=== PATIENT | male | born 1945 | race Caucasian/White ===

== ENCOUNTER 2016-10-04 12:26 | Inpatient (IN) | payer OTHER ==
[2016-10-04] MEDS ORDERED: ALPRAZolam 0.5 MG TAB PO PRN (16:18)
[2016-10-04] MEDS ORDERED: BISACODYL 10 MG SUPP PR PRN (16:23)
--- NOTE | 2016-10-04 16:58 | GHP ---
[f rep st] HISTORY AND PHYSICAL POST ADMISSION PHYSICIAN EVALUATION AND REHABILITATION TREATMENT PLAN DATE OF ADMISSION: 10/04/2016 DATE OF EVALUATION: 10/04/2016 TIME OF EVALUATION: 1515 REFERRING FACILITY: [facility] REFERRING PHYSICIAN: Maxx Jean MD CONSULTING PHYSICIANS: He was seen in consultation by Dr. Veliz, psychiatrist; Dr. Knight, orthopedic surgeon; Oncology Dr. Diego. REHABILITATION DIAGNOSIS: Debility status post left hip fracture and open reduction, internal failure. IMPAIRMENT GROUP: 8.11. RADIOLOGIC DIAGNOSIS: Unilateral hip fracture. DATE OF ONSET: 09/27/2016. DATE OF SURGERY: 09/27/2016. HISTORY OF PRESENT ILLNESS: Mr. Campos tripped over a trash can in the family room in his house on 09/26/2016. His was able to help him onto a couch. He slept through the night, but in the morning he yelled to his that he was unable to walk. She called 9-1-1 and he was brought to [facility]. There, radiology showed a left hip fracture. He underwent ORIF with Dr. Knight on 09/27/2016. His hospital course was complicated by acute encephalopathy, which has resolved with time and with medication adjustment. He was seen by Psychiatry, Dr. Veliz, for adjustment of his medication regimen. He also had hyponatremia with hypovolemia, which resolved with fluid replacement. Additionally, he had hypokalemia which was replaced. He had anemia related to his chronic lymphocytic leukemia and he had 1 unit of blood transfused. There was hypoxemia due to atelectasis, which improved with pulmonary toilet. He had consultation with Oncology regarding his history of CLL. His white count was very high, but was stable and no further treatment was indicated at this time. He was noted to have gait instability, which requires physical therapy to improve his safety with ambulation. He was noted to have hypertension and had the addition of amlodipine to his medications. He was stabilized for discharge to inpatient rehabilitation. OTHER LABORATORIES AND STUDIES DURING THIS HOSPITALIZATION: On the day before discharge, he had a slightly low potassium at 3.4. He appeared to be somewhat dehydrated with a BUN of 26 and a creatinine of 1.1. Otherwise, his renal function and electrolytes were within normal limits. Hematology on 10/02/2016 revealed a stable white blood cell count of 125 and on 09/30/2016 his absolute lymphocyte count was 120. He had anemia on 10/02/2016 with a hemoglobin of 7.3 and a hematocrit of 25.3. This improved after transfusion to a hemoglobin of 7.7 and hematocrit of 26.3. A head CT done to evaluate his altered mental status revealed moderate atrophy, cerebrovascular atherosclerosis, and moderate microvascular ischemic gliosis. There were no other abnormalities noted. Chest x-ray showed cardiomegaly with peribronchial cuffing with possibly left infrahilar airspace disease. EKG showed sinus rhythm and was a normal EKG. PRECAUTIONS: He is a fall risk. He is an aspiration risk. ACTIVE COMORBIDITIES: He has the tier 2 morbidity of dysphagia. Otherwise, there are no active tier 1, tier 2, or tier 3 comorbidities. PAST MEDICAL HISTORY: 1. Chronic lymphocytic leukemia with a baseline white blood cell count of about 200,000. 2. Non-Hodgkin's lymphoma, treated in 2008. 3. Hypertension. 4. Chronic hepatitis B. 5. Bipolar disease. 6. Parkinson disease. 7. Obstructive sleep apnea, intolerant of CPAP. 8. Benign prostatic hypertrophy. 9. Cognitive impairment with memory deficits. 10. History of multiple villous adenomas. 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 12. Mild interstitial fibrosis, secondary to Rituxan versus due to hypogammaglobulinemia. 13. Hypogammaglobulinemia. For which he receives IVIG with the next dose due October 07. 14. History of herpes zoster. PREHOSPITAL MEDICATIONS: 1. Aspirin 81 mg daily. 2. Abilify 40 mg daily. 3. Propranolol 60 mg daily. 4. Lorazepam 2 mg at h.s. 5. Alprazolam 0.5 mg as needed. 6. Valacyclovir 500 mg daily. 7. Quetiapine 200 mg at h.s. 8. Lisinopril 20 mg daily. 9. Vitamin D 5000 units daily. 10. Oxcarbazepine 1200 mg daily. 11. Lamivudine 100 mg daily. 12. Tamsulosin 0.8 mg daily. 13. Oxcarbazepine 300 mg at h.s. ADMISSION MEDICATIONS: 1. Acetaminophen 1000 mg t.i.d. 2. Albuterol/ipratropium nebulizer q.6 hours. 3. Alprazolam 0.5 mg p.o. b.i.d. p.r.n. anxiety. 4. Amlodipine 10 mg p.o. daily. 5. Aripiprazole 40 mg p.o. daily. 6. Aspirin 81 mg p.o. at h.s. 7. Bisacodyl 10 mg daily p.r.n. 8. Cholecalciferol 5000 units q.h.s. 9. Enoxaparin 40 mg subcutaneous daily. 10. IVIG 20 g, scheduled for 10/07/2016. 11. Lamivudine 100 mg p.o. daily. 12. Lisinopril 20 mg p.o. daily. 13. Lorazepam 2 mg p.o. q.h.s. 14. Oxcarbazepine 600 mg p.o. q.h.s. and 1200 mg p.o. daily. 15. Oxycodone 5 mg p.o. q.3 hours p.r.n. 16. Polyethylene glycol 17 g p.o. daily. 17. Propranolol 60 mg p.o. daily. 18. Quetiapine 50 mg p.o. q.h.s. 19. Senna/docusate 1-2 tablets p.o. b.i.d. 20. Tamsulosin 0.8 mg p.o. q.h.s. 21. Valacyclovir 500 mg p.o. daily. ALLERGIES: There are no known drug allergies. FAMILY HISTORY: There is a family history of a CVA in 1 of his parents. PSYCHOSOCIAL HISTORY: He lives at home with his . He is independent with most of his activities of daily living, but has assistance from his with instrumental activities of daily living. He ambulates with a cane. He is a former smoker. He does not use alcohol. REVIEW OF SYSTEMS: Somewhat limited by what appears to be poor recall. He denies any confusion. He denies pain. He denies nausea, vomiting, constipation , or diarrhea, although he says that he is moving his bowels more than he is used to. He denies dyspnea or cough. He denies chest pain or palpitations. He denies skin rash or skin breakdown. He denies dysuria, urinary frequency, or urinary hesitancy and otherwise, a 10-point review of systems is negative. PHYSICAL EXAM: VITAL SIGNS: From this morning at the hospital, his blood pressure was 146/85, his heart rate was 91, his respiratory rate was 17, his oxygen saturation was 94% on room air, his temperature was 36.8 degrees. His weight is 102 kg for a body mass index of 29. GENERAL: This is an obese, moderately unkempt man, appears his chronologic age, cooperative with a mildly combative attitude, and in no acute distress. HEENT: Extraocular movements are intact. Pupils are equally round and reactive to light. Mucous membranes are moist. Dentition is in fair condition. He has a crowded airway with Mallampati class 4. There are no oropharyngeal mucosal lesions noted. NECK: Supple. HEART: There is a regular rate and rhythm with no murmurs, rubs, or gallops. LUNGS: Clear to auscultation bilaterally. ABDOMEN: Soft, nontender , nondistended with normoactive bowel sounds and no hepatosplenomegaly. EXTREMITIES: There is no cyanosis, clubbing, or edema. Radial and dorsalis pedis pulses are 2+ bilaterally. NEUROLOGIC: He is alert and oriented to his general situation, location. Orientation to date was not tested. He recognizes this examiner from his previous stay here, but he does not recall when he has met me before. He confabulates re events around his fall and fracture, saying it happened [place] the ball [place]. Cranial nerves 2-12 are grossly intact. There is no focal weakness, though he requires assistance to arise from seated. Sensation is intact to light touch. There is no bradykinesia. He has a mild tremor of the right lower extremity when he is at rest. There is no rigidity bilaterally in the upper extremities. SKIN: Left hip incision is approximately 3-4 cm. There is some serosanguineous drainage on the bandage. There is no erythema or dehiscence. There is no decubitus ulcer noted. CURRENT LEVEL OF FUNCTION PER THE PREADMISSION SCREEN: Regarding diet, feeding , and swallowing: He was on a dysphagia 2 diet with thin liquids. He was noted to have mild to moderate dysphagia to require supervision. Regarding grooming: He required minimal assist. For bathing, he needed assistance. For dressing, he needed moderate assistance for both upper and lower extremities. For toileting, he was noted to need assistance. For bed mobility, he needed moderate assistance. For transfers, he needed moderate assist with 2 people. Balance standing required a 2-person assist. His endurance was poor. He walked 15 feet with minimal assistance. Cognition was noted to have moderate to severe deficit, and he was considered a fall risk. ASSESSMENT AND PLAN: Mr. Charly Campos is a 71-year-old man, who had a fall at home and suffered a left hip fracture. He has a history of a prior fall with fractures from a ladder on 03/28/2014. At that time, he underwent ORIF of the right femur. He also had sustained pelvic and lumbar vertebral fractures, and he was admitted to a assisted and then back to [facility] with encephalopathy and finally, was discharged to inpatient rehabilitation. He has considerable debility and has suffered an acute encephalopathy which may be clearing, though he seems to be quite confused on the current exam. He has comorbid chronic lymphocytic leukemia, hypogammaglobulinemia, a diagnosis of Parkinson disease though he is not on any medications for it, and bipolar 2 disorder for which he is on medications. Additionally, he has chronic hepatitis B which is being treated, and a history of herpes zoster on suppressive therapy. He is appropriate for inpatient rehabilitation. He will benefit from comprehensive therapies regarding cognition, swallowing, mobility, and activities of daily living. In addition, he needs nursing care regarding his fall risk, skin risk, behavioral issues, and bowel and bladder management, and he will benefit from close medical supervision regarding hypertension, anemia, possible parkinsonism, and pain management. His goal is to return home with his with home healthcare and durable medical equipment as needed. For a safe discharge, he will need to achieve modified independence with mobility ADLs and cognition. There will have to be education for the patient and his regarding medication management, and family training for him to return home. He will receive therapy with physical therapy, occupational therapy, and speech and language pathology for 60 minutes per day for each discipline on 5-7 days a week. His expected duration of stay is 10-14 days. It is expected that upon discharge he will continue to benefit from home health services, including nursing, speech and language pathology, social work, occupational therapy, and physical therapy. By problem list: 1. Hip fracture following a fall at home, status post ORIF with debility. He will have physical and occupational therapy to optimize his mobility and functional status regarding ADLs. 2. Dysphagia noted in the hospital, on a dysphagia 2 diet. He will have therapy with speech and language pathology to optimize his swallowing with the least restrictive diet. 3. Cognitive impairment with prominent memory loss and confabulation. He will have therapy with speech and language pathology to optimize his cognitive function. 4. Anemia, due to chronic lymphocytic leukemia. His blood counts will be followed and potentially, he will receive another transfusion. 5. Hypertension. Blood pressure was still elevated today at the acute care hospital despite addition of amlodipine to his regimen of lisinopril and propranolol. On his previous admission he developed hyponatremia with hydrochlorothiazide, so he may not be a candidate for diuretic therapy. His blood pressure will be followed and medications adjusted as needed. 6. Benign prostatic hypertrophy. He will continue tamsulosin. 7. Bipolar disorder. He will continue on his adjusted medication regimen of quetiapine 200 mg q.h.s., oxcarbazepine 1200 mg daily and 600 mg q.h.s., as well as p.r.n. lorazepam and alprazolam, and aripiprazole 40 mg daily. 8. Likely osteoporosis with history of prior fractures and current fracture. He is on vitamin D replacement and this will be continued, and advise bone density testing after his discharge. 9. Obstructive sleep apnea, intolerant of CPAP. Oxygen at night will be used and he will be monitored for any complications. 10. Chronic lymphocytic leukemia is managed per Oncology. 11. Hypogammaglobulinemia, due for repeat dosing of IVIG on 10/07/2016. /[id number]/MODL MTDD
[2016-10-04] MEDS: IPRATROPIUM/ALBUTEROL 3 ML DEYVIAL IH SCH (18:26)
[2016-10-04] MEDS: CHOLECALCIFEROL VIT D3 1,000 UNITS TAB PO SCH (20:38)
[2016-10-04] MEDS: QUEtiapine FUMARATE 200 MG TAB PO SCH (20:38)
[2016-10-04] MEDS: OXcarbazepine 300 MG TAB PO SCH (20:39)
[2016-10-04] MEDS: TAMSULOSIN HCL 0.4 MG CAP PO SCH (20:39)
[2016-10-04] MEDS: ASPIRIN 81 MG CHEWABLE TAB PO SCH (20:39)
[2016-10-04] MEDS: ACETAMINOPHEN 500 MG TAB PO SCH (20:46)
[2016-10-04] MEDS ORDERED: LORazepam 1 MG TAB PO SCH (21:00)
[2016-10-04] MEDS: NYSTATIN 15 GM CR TUBE TP SCH ×2 (22:24→22:38)
[2016-10-05] MEDS: IPRATROPIUM/ALBUTEROL 3 ML DEYVIAL IH SCH ×5 (00:35→23:29)
[2016-10-05] MEDS: ACETAMINOPHEN 500 MG TAB PO SCH ×3 (05:25→20:26)
[2016-10-05 08:30] LABS: ABSOLUTE NRBC COUNT 0.26 10^3/uL (0-0.01); ADD DIFF? YES; ADD MORPH? YES; ADD SCAN? YES; ATYPICAL LYMPHOCYTE FLAG 20 (0-99); FRAGMENT RBC FLAG 20 (0-99); HEMATOCRIT 27.9 % (40.0-51.0); HEMOGLOBIN 8.4 g/dL (13.7-17.5); LEFT SHIFT FLG 10 (0-99); LIPEMIA HEMOLYSIS FLAG 80 (0-99); MEAN CELL HEMOGLOBIN 31.9 pg (27.9-34.1); MEAN CELL HEMOGLOBIN CONCENTR. 30.1 g/dL (32.4-36.7); MEAN CELL VOLUME 106.1 fL (81.5-99.8); NRBC-AUTO% 0.2 % (0.0-0.2); PLATELET CLUMPS FLAG 0 (0-99); PLATELET COUNT 135 10^3/uL (150-400); RED BLOOD CELL COUNT 2.63 10^6/uL (4.40-6.38)
[2016-10-05] MEDS: PROPRANOLOL SR 60 MG CAP PO SCH (08:35)
[2016-10-05] MEDS: valACYclovir 500 MG TAB PO SCH (08:35)
[2016-10-05] MEDS: POLYETHYLENE GLYCOL 3350 17 GM PKT PO SCH (08:36)
[2016-10-05] MEDS: amLODIPine BESYLATE 5 MG TAB PO SCH (08:36)
[2016-10-05] MEDS: LISINOPRIL 20 MG TAB PO SCH (08:36)
[2016-10-05] MEDS: OXcarbazepine 300 MG TAB PO SCH ×2 (08:36→20:08)
[2016-10-05] MEDS: ENOXAPARIN 40 MG/0.4 ML SYR SC SCH (08:37)
[2016-10-05] MEDS: ARIPiprazole 10 MG TAB PO SCH (08:45)
[2016-10-05] MEDS: NYSTATIN 15 GM CR TUBE TP SCH ×2 (08:55→20:21)
[2016-10-05 09:03] LABS: ALANINE AMINOTRANSFERASE 33 IU/L (21-72); ALBUMIN 3.5 g/dL (3.5-5.0); ALKALINE PHOSPHATASE 76 IU/L (38-126); ANION GAP 8 mEq/L (8-16); ASPARTATE AMINOTRANSFERASE 24 IU/L (17-59); BILIRUBIN,TOTAL 0.6 mg/dL (0.1-1.4); CALCIUM 9.4 mg/dL (8.5-10.4); CARBON DIOXIDE 29 mEq/l (22-31); CHLORIDE 105 mEq/L (97-110); GLOMERULAR FILTRATION RATE > 60; GLUCOSE 84 mg/dL (70-100); POTASSIUM 3.9 mEq/L (3.5-5.2); SODIUM 142 mEq/L (134-144); TOTAL PROTEIN 5.9 g/dL (6.3-8.2)
[2016-10-05 09:08] LABS: RED CELL DISTRIBUTION WIDTH 20.7 % (11.5-15.2)
[2016-10-05 11:17] LABS: ELLIPTOCYTES 1+; MACROCYTES 1+; PLATELET ESTIMATE DECREASED (ADEQ)
[2016-10-05] MEDS: oxyCODONE IR 5 MG TAB PO PRN (12:12)
--- NOTE | 2016-10-05 12:44 | PDOREHIP ---
Admission [facility] - Admission - 3 Day Assessment Period Admission Date/Day 1: 10/04/16 Day 2: 10/05/16 Day 3: 10/06/16 - Active Diagnoses Comorbidities and Co-existing Conditions at Admission: 00557. None of the Above - Skin Conditions Unhealed Pressure Ulcer (1 or more/Stage 1 or >)-Admission: 0. No
--- NOTE | 2016-10-05 12:45 | SOAPPROG ---
SOAP Progress Note Assessment/Plan: Assessment: * Hip fracture following a fall at home, status post ORIF 09/27/16 with debility. PT & OT to optimize his mobility and functional status regarding ADLs. * Dysphagia noted in the hospital, on a dysphagia 2 diet. He will have therapy with speech and language pathology to optimize his swallowing with the least restrictive diet. * Cognitive impairment with prominent memory loss and confabulation. He will have therapy with speech and language pathology to optimize his cognitive function. * Anemia, due to chronic lymphocytic leukemia. Improved with h/h 8.4/27.9 on 10/05/16, compared to 7/7 & 25.3 on 10/03/16. * Hypertension. Was elevatedlast night. Normotensive today. Continue amlodipine 10 mg QD, lisinopril 20 mg QD and propranolol 60 mg QD. H/O hyponatremia with hydrochlorothiazide, so he may not be a candidate for diuretic therapy. * Benign prostatic hypertrophy. Continue tamsulosin. * Bipolar disorder. Meds adjusted in the acute hospital. Continue quetiapine 200 mg q.h.s., oxcarbazepine 1200 mg daily and 600 mg q.h.s.aripiprazole 40 mg daily and lorazepam, but will reduce lorazepam form 2 mg QHS to 1 mg QHS due to somnolence noted this morning. Continue PRN alprazolam. * Likely osteoporosis with history of prior fractures and current fracture. Continue vitamin D replacement. Advise bone density testing after his discharge. * Obstructive sleep apnea, intolerant of CPAP. Oxygen at night will be used and he will be monitored for any complications. * Chronic lymphocytic leukemia is managed per Oncology. * Hypogammaglobulinemia, due for repeat dosing of IVIG on 10/07/2016. * Tongue coating appears c/w poor hygiene rather than thrush. Staff to pay attention to oral hygiene. 10/05/16 13:19 Subjective: Noted to be sleepy this morning by nurse. Nurse reports that patient's was interested in getting an MRI of his brain; mentioned as a possibility in head CT done in the hospital; concerned re L facial droop; night nurse also noted L facial droop in eyelid. Patient is seated at lunch table, eating slowly, no complaints other than abdominal bloating and feels that there is a lot of food on his plate. Denies f /c, n/v/c/d. [employer] O[employer]ATOR concerned re possible thrush. Objective: Vital Signs Temp Pulse Resp BP Pulse Ox 36.6 C 84 17 131/82 H 93 10/05/16 05:31 10/05/16 08:35 10/05/16 05:31 10/05/16 08:36 10/05/16 05:31 Laboratory Results 10/05/16 05:30 10/05/16 05:30 10/04/16 10/05/16 10/06/16 05:59 05:59 05:59 Intake Total 480 Output Total 450 Balance 30 Physical Exam - Physical Exam General Appearance: WD/WN, alert, no apparent distress EENT: other (Pale brown coating on tongue lyle L, sparing central and posterior tongue.) Respiratory: normal breath sounds, No crackles, No rhonchi, No wheezing Cardiac/Chest: regular rate, rhythm, No edema Abdomen: normal bowel sounds, non-tender, soft, No distended Neuro/Psych: alert, normal mood/affect, No abnormal director of procurement II-XII, No motor weakness ICD10 Worksheet Patient Problems: Problems Problem Status Diagnosed CLL (chronic lymphocytic leukemia) Acute Hip fracture, left Acute Hypoxemia Acute
[2016-10-05] MEDS: TAMSULOSIN HCL 0.4 MG CAP PO SCH (20:06)
[2016-10-05] MEDS: QUEtiapine FUMARATE 100 MG TAB PO SCH (20:07)
[2016-10-05] MEDS: CHOLECALCIFEROL VIT D3 1,000 UNITS TAB PO SCH (20:07)
[2016-10-05] MEDS: ASPIRIN 81 MG CHEWABLE TAB PO SCH (20:08)
[2016-10-05] MEDS: LORazepam 1 MG TAB PO SCH (20:08)
[2016-10-05 21:56] LABS: SCAN POSITIVE
[2016-10-06] MEDS: ACETAMINOPHEN 500 MG TAB PO SCH ×3 (04:47→20:52)
[2016-10-06] MEDS: IPRATROPIUM/ALBUTEROL 3 ML DEYVIAL IH SCH ×3 (04:47→18:03)
[2016-10-06] MEDS: ARIPiprazole 10 MG TAB PO SCH (08:09)
[2016-10-06] MEDS: PROPRANOLOL SR 60 MG CAP PO SCH (08:09)
[2016-10-06] MEDS: amLODIPine BESYLATE 5 MG TAB PO SCH (08:09)
[2016-10-06] MEDS: SENNOSIDES 1 TAB PO PRN (08:10)
[2016-10-06] MEDS: POLYETHYLENE GLYCOL 3350 17 GM PKT PO SCH (08:10)
[2016-10-06] MEDS: OXcarbazepine 300 MG TAB PO SCH ×2 (08:10→20:51)
[2016-10-06] MEDS: ENOXAPARIN 40 MG/0.4 ML SYR SC SCH (08:10)
[2016-10-06] MEDS: LISINOPRIL 20 MG TAB PO SCH (08:10)
[2016-10-06] MEDS: valACYclovir 500 MG TAB PO SCH (08:10)
[2016-10-06] MEDS: NYSTATIN 15 GM CR TUBE TP SCH ×2 (08:33→20:52)
--- NOTE | 2016-10-06 14:25 | SOAPPROG ---
SOAP Progress Note Assessment/Plan: Assessment: * Hip fracture following a fall at home, status post ORIF 09/27/16 with debility. PT & OT to optimize his mobility and functional status regarding ADLs. Ambulated skilled nursing across roome 10/06/16 with FWW and assist of 2. * Dysphagia noted in the hospital, on a dysphagia 2 diet. He will have therapy with speech and language pathology to optimize his swallowing with the least restrictive diet. * Cognitive impairment with prominent memory loss and confabulation. He will have therapy with speech and language pathology to optimize his cognitive function. * Anemia, due to chronic lymphocytic leukemia. Improved with h/h 8.4/27.9 on , compared to 7/7 & 25.3 on 10/03/16. * Altered LOC: +/- improved with decrease in lorazepam from 2 mg QHS to 1 mg QHS on 10/04/16. Continue to monitor; may need to decrease oxcarbazepine or quetiapine; may request assistance of psychiatry. * Hypertension. Adequate control. Continue amlodipine 10 mg QD, lisinopril 20 mg QD and propranolol 60 mg QD. H/O hyponatremia with hydrochlorothiazide, so he may not be a candidate for diuretic therapy. * Benign prostatic hypertrophy. Continue tamsulosin. Hope for improved voiding with resolution of constipation and/or reduced need for opiate. * Constipation: continue bowel program. * Bipolar disorder. Meds adjusted in the acute hospital. Continue quetiapine 200 mg q.h.s., oxcarbazepine 1200 mg daily and 600 mg q.h.s.aripiprazole 40 mg daily and lorazepam, but will reduce lorazepam form 2 mg QHS to 1 mg QHS due to somnolence noted morning of 10/05/16. Continue PRN alprazolam. * Likely osteoporosis with history of prior fractures and current fracture. Continue vitamin D replacement. Advise bone density testing after his discharge. * Obstructive sleep apnea, intolerant of CPAP. Oxygen at night will be used and he will be monitored for any complications. * Chronic lymphocytic leukemia is managed per Oncology. * Hypogammaglobulinemia, due for repeat dosing of IVIG on 10/07/2016. * Tongue coating appears c/w poor hygiene rather than thrush. Staff to pay attention to oral hygiene. 10/06/16 14:26 Subjective: No complaints. Slept well. Did not feel less sleepy this morning. Urinary retention noted by nurse. Also with constipation. Given suppository, has small bowel movement and voided 350cc. Objective: Vital Signs Temp Pulse Resp BP Pulse Ox 36.4 C 71 17 135/76 H 94 10/06/16 05:15 10/06/16 08:09 10/06/16 05:15 10/06/16 08:10 10/06/16 05:15 Laboratory Results 10/05/16 05:30 10/05/16 05:30 10/05/16 10/06/16 10/07/16 05:59 05:59 05:59 Intake Total 480 1010 236 Output Total 450 875 Balance 30 135 236 Physical Exam - Physical Exam General Appearance: WD/WN, alert, no apparent distress, obese, other (drowsy) Respiratory: normal breath sounds, No crackles, No rhonchi, No wheezing Cardiac/Chest: regular rate, rhythm, No edema Abdomen: normal bowel sounds, non-tender, soft, No distended Neuro/Psych: alert, normal mood/affect ICD10 Worksheet Patient Problems: Problems Problem Status Diagnosed CLL (chronic lymphocytic leukemia) Acute Hip fracture, left Acute Hypoxemia Acute
[2016-10-06] MEDS: TAMSULOSIN HCL 0.4 MG CAP PO SCH (20:51)
[2016-10-06] MEDS: ASPIRIN 81 MG CHEWABLE TAB PO SCH (20:51)
[2016-10-06] MEDS: LORazepam 1 MG TAB PO SCH (20:51)
[2016-10-06] MEDS: QUEtiapine FUMARATE 100 MG TAB PO SCH (20:51)
[2016-10-06] MEDS: CHOLECALCIFEROL VIT D3 1,000 UNITS TAB PO SCH (20:52)
[2016-10-07] MEDS: IPRATROPIUM/ALBUTEROL 3 ML DEYVIAL IH SCH ×5 (00:01→23:23)
[2016-10-07] MEDS: ACETAMINOPHEN 500 MG TAB PO SCH ×3 (06:13→23:23)
[2016-10-07] MEDS: POLYETHYLENE GLYCOL 3350 17 GM PKT PO SCH (08:45)
[2016-10-07] MEDS: amLODIPine BESYLATE 5 MG TAB PO SCH (08:47)
[2016-10-07] MEDS: ARIPiprazole 10 MG TAB PO SCH (08:49)
[2016-10-07] MEDS: ENOXAPARIN 40 MG/0.4 ML SYR SC SCH (08:51)
[2016-10-07] MEDS: LISINOPRIL 20 MG TAB PO SCH (08:52)
[2016-10-07] MEDS: OXcarbazepine 300 MG TAB PO SCH ×2 (08:53→19:20)
[2016-10-07] MEDS: PROPRANOLOL SR 60 MG CAP PO SCH (08:56)
[2016-10-07] MEDS: valACYclovir 500 MG TAB PO SCH (08:57)
[2016-10-07] MEDS: NYSTATIN 15 GM CR TUBE TP SCH ×2 (09:15→19:20)
--- NOTE | 2016-10-07 16:02 | SOAPPROG ---
SOAP Progress Note Assessment/Plan: Assessment: * Hip fracture following a fall at home, status post ORIF 09/27/16 with debility. Initial FIM 44 on 10/07/16. Ambulated 25', co-treat, wheelchair following. Motor planning deficit; inconsistent mobility. ContinuePT & OT to optimize his mobility and functional status regarding ADLs. Goal to reduce burden of care to 1 person assist. * Dysphagia noted in the hospital, on a dysphagia 2 diet. He will have therapy with speech and language pathology to optimize his swallowing with the least restrictive diet. * Cognitive impairment with prominent memory loss and confabulation. PAINT TINTER reports SLUMS 04/15 in hospital. Continue attempts at cognitive rehabilitation. * Anemia, due to chronic lymphocytic leukemia. Improved with h/h 8.4/27.9 on , compared to 04/22 & 25.3 on 10/03/16. * Altered LOC: +/- improved with decrease in lorazepam from 2 mg QHS to 1 mg QHS on 10/04/16. Continue to monitor. * Hypertension. Adequate control. Continue amlodipine 10 mg QD, lisinopril 20 mg QD and propranolol 60 mg QD. H/O hyponatremia with hydrochlorothiazide, so he may not be a candidate for diuretic therapy. * Benign prostatic hypertrophy. Continue tamsulosin. Improved voiding with resolution of constipation and reduced need for opiate. * Constipation: continue bowel program. * Bipolar disorder. Continue quetiapine 200 mg q.h.s., oxcarbazepine 1200 mg daily and 600 mg q.h.s.aripiprazole 40 mg daily and lorazepam, but will reduce lorazepam form 2 mg QHS to 1 mg QHS due to somnolence noted morning of . Continue PRN alprazolam. * Likely osteoporosis with history of prior fractures and current fracture. Continue vitamin D replacement. Advise bone density testing after his discharge. * Obstructive sleep apnea, intolerant of CPAP. Oxygen at night will be used and he will be monitored for any complications. * Chronic lymphocytic leukemia is managed per Oncology. * Hypogammaglobulinemia, due for repeat dosing of IVIG on 10/07/2016. * Tongue coating appears c/w poor hygiene rather than thrush. Staff to pay attention to oral hygiene. 10/07/16 15:57 Subjective: No complaints. Denies pain, f/c, cough, dyspnea. Does not recall therapy sessions today until prompted, and then shows me medication list to indicate what he did in therapies. Objective: Vital Signs Temp Pulse Resp BP Pulse Ox 36.8 C 81 16 135/86 H 92 10/07/16 06:24 10/07/16 08:56 10/07/16 06:24 10/07/16 08:56 10/07/16 06:24 Laboratory Results 10/05/16 05:30 10/05/16 05:30 10/06/16 10/07/16 10/08/16 05:59 05:59 05:59 Intake Total 1010 476 600 Output Total 875 850 350 Balance 135 -374 250 Physical Exam - Physical Exam General Appearance: WD/WN, alert, no apparent distress Respiratory: normal breath sounds, No crackles, No rhonchi, No wheezing Cardiac/Chest: regular rate, rhythm, No edema Neuro/Psych: alert, normal mood/affect ICD10 Worksheet Patient Problems: Problems Problem Status Diagnosed CLL (chronic lymphocytic leukemia) Acute Hip fracture, left Acute Hypoxemia Acute
[2016-10-07] MEDS: CHOLECALCIFEROL VIT D3 1,000 UNITS TAB PO SCH (19:19)
[2016-10-07] MEDS: TAMSULOSIN HCL 0.4 MG CAP PO SCH (19:19)
[2016-10-07] MEDS: QUEtiapine FUMARATE 100 MG TAB PO SCH ×2 (19:19→19:20)
[2016-10-07] MEDS: ASPIRIN 81 MG CHEWABLE TAB PO SCH (19:19)
[2016-10-07] MEDS: LORazepam 1 MG TAB PO SCH (19:20)
[2016-10-08] MEDS: ACETAMINOPHEN 500 MG TAB PO SCH ×3 (05:50→22:37)
[2016-10-08] MEDS: IPRATROPIUM/ALBUTEROL 3 ML DEYVIAL IH SCH ×4 (05:50→22:32)
[2016-10-08] MEDS: amLODIPine BESYLATE 5 MG TAB PO SCH (09:07)
[2016-10-08] MEDS: POLYETHYLENE GLYCOL 3350 17 GM PKT PO SCH (09:07)
[2016-10-08] MEDS: ARIPiprazole 10 MG TAB PO SCH (09:09)
[2016-10-08] MEDS: ENOXAPARIN 40 MG/0.4 ML SYR SC SCH (09:11)
[2016-10-08] MEDS: LISINOPRIL 20 MG TAB PO SCH (09:14)
[2016-10-08] MEDS: PROPRANOLOL SR 60 MG CAP PO SCH (09:16)
[2016-10-08] MEDS: valACYclovir 500 MG TAB PO SCH (09:17)
[2016-10-08] MEDS: OXcarbazepine 300 MG TAB PO SCH ×2 (09:19→20:52)
[2016-10-08] MEDS: NYSTATIN 15 GM CR TUBE TP SCH ×2 (10:53→20:52)
--- NOTE | 2016-10-08 11:25 | SOAPPROG ---
[id number] debility. Initial FIM 44 on 10/07/16. Ambulated 25', co-treat, wheelchair following. Motor planning deficit; inconsistent mobility. Continue PT & OT to optimize his mobility and functional status regarding ADLs. Goal to reduce burden of care to 1 person assist. * Dysphagia noted in the hospital, on a dysphagia 2 diet. He will have therapy with speech and language pathology to optimize his swallowing with the least restrictive diet. * Cognitive impairment with prominent memory loss and confabulation. CHART READER reports SLUMS 04/15 in hospital. Continue attempts at cognitive rehabilitation. * Anemia, due to chronic lymphocytic leukemia. Improved with h/h 8.4/27.9 on , compared to 7 & 25.3 on 10/03/16. * Altered LOC: +/- improved with decrease in lorazepam from 2 mg QHS to 1 mg QHS on 10/04/16. Continue to monitor. * Hypertension. Adequate control. Continue amlodipine 10 mg QD, lisinopril 20 mg QD and propranolol 60 mg QD. H/O hyponatremia with hydrochlorothiazide, so he may not be a candidate for diuretic therapy. * Benign prostatic hypertrophy. Continue tamsulosin. Improved voiding with resolution of constipation and reduced need for opiate. Still with incontinence at night. Initiate timed voiding during the day beginning . * Constipation: continue bowel program. * Bipolar disorder. Continue quetiapine 200 mg q.h.s., oxcarbazepine 1200 mg daily and 600 mg q.h.s., aripiprazole 40 mg daily and lorazepam, but will reduce lorazepam form 2 mg QHS to 1 mg QHS due to somnolence noted morning of . Continue PRN alprazolam. * Likely osteoporosis with history of prior fractures and current fracture. Continue vitamin D replacement. Advise bone density testing after his discharge. * Obstructive sleep apnea, intolerant of CPAP. Oxygen at night will be used and he will be monitored for any complications. * Chronic lymphocytic leukemia is managed per Oncology. * Hypogammaglobulinemia, due for repeat dosing of IVIG on 10/07/2016. * Tongue coating appears c/w poor hygiene rather than thrush. Staff to pay attention to oral hygiene. 10/08/16 13:21 Subjective: Has had episodes of urinary incontinence; also difficulty voiding, PVR no significantly elevated. He is not clear on how to account for it. He denies issues with privacy for voiding but makes nonspecific comments about "these women" pressuring him "like a noose around my neck." Objective: Vital Signs Temp Pulse Resp BP Pulse Ox 37.0 C 75 18 135/86 H 91 L 10/08/16 06:08 10/08/16 09:16 10/08/16 09:03 10/08/16 09:16 10/08/16 09:03 Laboratory Results 10/05/16 05:30 10/05/16 05:30 10/07/16 10/08/16 10/09/16 05:59 05:59 05:59 Intake Total 476 600 Output Total 850 350 140 Balance -374 250 -140 Physical Exam - Physical Exam General Appearance: WD/WN, alert, no apparent distress Respiratory: normal breath sounds, No crackles, No rhonchi, No wheezing Cardiac/Chest: regular rate, rhythm, No edema Skin: normal color, warm/dry Neuro/Psych: alert, normal mood/affect ICD10 Worksheet Patient Problems: Problems Problem Status Diagnosed CLL (chronic lymphocytic leukemia) Acute Hip fracture, left Acute Hypoxemia Acute
[2016-10-08] MEDS: CHOLECALCIFEROL VIT D3 1,000 UNITS TAB PO SCH (20:49)
[2016-10-08] MEDS: ASPIRIN 81 MG CHEWABLE TAB PO SCH (20:49)
[2016-10-08] MEDS: LORazepam 1 MG TAB PO SCH (20:51)
[2016-10-08] MEDS: TAMSULOSIN HCL 0.4 MG CAP PO SCH (20:53)
[2016-10-08] MEDS: QUEtiapine FUMARATE 100 MG TAB PO SCH (22:32)
[2016-10-09] MEDS: ACETAMINOPHEN 500 MG TAB PO SCH ×3 (06:27→20:20)
[2016-10-09] MEDS: IPRATROPIUM/ALBUTEROL 3 ML DEYVIAL IH SCH ×3 (06:27→18:29)
[2016-10-09] MEDS: ENOXAPARIN 40 MG/0.4 ML SYR SC SCH (08:48)
[2016-10-09] MEDS: PROPRANOLOL SR 60 MG CAP PO SCH (08:49)
[2016-10-09] MEDS: OXcarbazepine 300 MG TAB PO SCH ×2 (08:49→20:21)
[2016-10-09] MEDS: valACYclovir 500 MG TAB PO SCH (08:49)
[2016-10-09] MEDS: POLYETHYLENE GLYCOL 3350 17 GM PKT PO SCH (08:49)
[2016-10-09] MEDS: amLODIPine BESYLATE 5 MG TAB PO SCH (08:50)
[2016-10-09] MEDS: oxyCODONE IR 5 MG TAB PO PRN ×3 (08:50→18:29)
[2016-10-09] MEDS: ARIPiprazole 10 MG TAB PO SCH (08:50)
[2016-10-09] MEDS: LISINOPRIL 20 MG TAB PO SCH (08:50)
[2016-10-09] MEDS: NYSTATIN 15 GM CR TUBE TP SCH ×2 (09:02→20:40)
--- NOTE | 2016-10-09 11:28 | SOAPPROG ---
SOAP Progress Note Assessment/Plan: Assessment: * Hip fracture following a fall at home, status post ORIF 09/27/16 with debility. Initial FIM 44 on 10/07/16. Ambulated 25', co-treat, wheelchair following. Motor planning deficit; inconsistent mobility. Continue PT & OT to optimize his mobility and functional status regarding ADLs. Goal to reduce burden of care to 1 person assist. * Dysphagia noted in the hospital, on a dysphagia 2 diet. He will have therapy with speech and language pathology to optimize his swallowing with the least restrictive diet. * Cognitive impairment with prominent memory loss and confabulation. 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 Continue attempts at cognitive rehabilitation. * Anemia, due to chronic lymphocytic leukemia. Improved with h/h 8.4/27.9 on , compared to 7 & 25.3 on 10/03/16. * Altered LOC: +/- improved with decrease in lorazepam from 2 mg QHS to 1 mg QHS on 10/04/16. Continue to monitor. * Hypertension. Adequate control. Continue amlodipine 10 mg QD, lisinopril 20 mg QD and propranolol 60 mg QD. H/O hyponatremia with hydrochlorothiazide, so he may not be a candidate for diuretic therapy. * Benign prostatic hypertrophy. Continue tamsulosin. Improved voiding with resolution of constipation and reduced need for opiate. Still with incontinence at night. Initiate timed voiding during the day beginning . * Constipation: continue bowel program. * Bipolar disorder. Continue quetiapine 200 mg q.h.s., oxcarbazepine 1200 mg daily and 600 mg q.h.s., aripiprazole 40 mg daily and lorazepam, but will reduce lorazepam form 2 mg QHS to 1 mg QHS due to somnolence noted morning of . Continue PRN alprazolam. * Likely osteoporosis with history of prior fractures and current fracture. Continue vitamin D replacement. Advise bone density testing after his discharge. * Obstructive sleep apnea, intolerant of CPAP. Oxygen at night will be used and he will be monitored for any complications. * Chronic lymphocytic leukemia is managed per Oncology. * Hypogammaglobulinemia, missed repeat dosing of IVIG on 10/07/2016. D/W Heme/ Onc office 10/08/16 re possibility of nurse coming to rehabilitation unit week of 10/11/16 to administer. Will follow-up week of 10/11/16. * Tongue coating appears c/w poor hygiene rather than thrush. Staff to pay attention to oral hygiene. 10/09/16 11:26 Subjective: No complaints. Slept well. Per nursing, incontinent of urine X 1 this morning while bladder scan was performed; also has called for assistance to urinate and been continent on other occasions today. Objective: Vital Signs Temp Pulse Resp BP Pulse Ox 36.4 C 101 H 16 133/83 H 95 10/09/16 06:53 10/09/16 08:49 10/09/16 06:53 10/09/16 08:50 10/09/16 06:53 Laboratory Results 10/05/16 05:30 10/05/16 05:30 10/08/16 10/09/16 10/10/16 05:59 05:59 05:59 Intake Total 600 2050 320 Output Total 350 290 Balance 250 1760 320 Physical Exam - Physical Exam General Appearance: WD/WN, alert, no apparent distress Respiratory: normal breath sounds, No crackles, No rhonchi, No wheezing Cardiac/Chest: regular rate, rhythm, No edema Skin: normal color, warm/dry Neuro/Psych: alert, normal mood/affect, oriented x 3, abnormal gait (Observed transferring with 2 nurses, with much cueing to turn back towards bed and to not sit until positioned over bed, slowmovement, very small steps.) ICD10 Worksheet Patient Problems: Problems Problem Status Diagnosed CLL (chronic lymphocytic leukemia) Acute Hip fracture, left Acute Hypoxemia Acute
[2016-10-09] MEDS: QUEtiapine FUMARATE 100 MG TAB PO SCH (20:21)
[2016-10-09] MEDS: TAMSULOSIN HCL 0.4 MG CAP PO SCH (20:21)
[2016-10-09] MEDS: LORazepam 1 MG TAB PO SCH (20:22)
[2016-10-09] MEDS: CHOLECALCIFEROL VIT D3 1,000 UNITS TAB PO SCH (20:22)
[2016-10-09] MEDS: ASPIRIN 81 MG CHEWABLE TAB PO SCH (20:40)
[2016-10-10] MEDS: oxyCODONE IR 5 MG TAB PO PRN ×2 (01:28→13:31)
[2016-10-10] MEDS: IPRATROPIUM/ALBUTEROL 3 ML DEYVIAL IH SCH ×4 (01:28→17:33)
[2016-10-10] MEDS: ACETAMINOPHEN 500 MG TAB PO SCH ×3 (06:31→20:11)
[2016-10-10] MEDS: amLODIPine BESYLATE 5 MG TAB PO SCH (08:38)
[2016-10-10] MEDS: ENOXAPARIN 40 MG/0.4 ML SYR SC SCH (08:39)
[2016-10-10] MEDS: ARIPiprazole 10 MG TAB PO SCH (08:39)
[2016-10-10] MEDS: LISINOPRIL 20 MG TAB PO SCH (08:40)
[2016-10-10] MEDS: PROPRANOLOL SR 60 MG CAP PO SCH (08:41)
[2016-10-10] MEDS: POLYETHYLENE GLYCOL 3350 17 GM PKT PO SCH (08:41)
[2016-10-10] MEDS: valACYclovir 500 MG TAB PO SCH (08:41)
[2016-10-10] MEDS: OXcarbazepine 300 MG TAB PO SCH ×2 (08:41→20:13)
[2016-10-10] MEDS: NYSTATIN 15 GM CR TUBE TP SCH ×2 (09:02→20:12)
[2016-10-10 12:15] LABS: ABSOLUTE NRBC COUNT 0.26 10^3/uL (0-0.01); ADD DIFF? YES; ADD MORPH? YES; ATYPICAL LYMPHOCYTE FLAG 40 (0-99); FRAGMENT RBC FLAG 20 (0-99); HEMOGLOBIN 8.9 g/dL (13.7-17.5); LEFT SHIFT FLG 30 (0-99); LIPEMIA HEMOLYSIS FLAG 70 (0-99); MEAN CELL HEMOGLOBIN 30.9 pg (27.9-34.1); MEAN CELL VOLUME 107.6 fL (81.5-99.8); MEAN PLATELET VOLUME 11.1 fL (8.7-11.7); NRBC-AUTO% 0.2 % (0.0-0.2); PLATELET CLUMPS FLAG 30 (0-99); PLATELET COUNT 164 10^3/uL (150-400); RED BLOOD CELL COUNT 2.88 10^6/uL (4.40-6.38); RED CELL DISTRIBUTION WIDTH 19.9 % (11.5-15.2)
[2016-10-10 12:17] LABS: MEAN CELL HEMOGLOBIN CONCENTR. 28.7 g/dL (32.4-36.7)
--- NOTE | 2016-10-10 12:23 | DX ---
AP and lateral chest x-ray 1154 hours. History: Hypoxemia. Findings: Comparison to September 29, 2016. There is once again very poor inspiration with compressive changes at the lung bases. Allowing for th is, there is relative prominence of parenchymal markings at the lung bases that could be related to s ome dependent edema. There are no effusions. Heart size remains upper limits of normal. Central vascu lar catheter remains in place. Pulmonary vasculature is prominent centrally. Osseous structures are u nchanged. There is incidental calcified granuloma left upper lung. Impression: 1. Poor inspiration once again noted with compressive changes at the lung bases. There is suspicion o f superimposed increase in dependent edema at the lung bases. Rule out mild fluid overload. These findings were discussed by telephone with Dr. Acevedo.
[2016-10-10 12:24] LABS: ANION GAP 11 mEq/L (8-16); CALCIUM 10.2 mg/dL (8.5-10.4); CARBON DIOXIDE 28 mEq/l (22-31); CHLORIDE 100 mEq/L (97-110); CREATININE 1.3 mg/dL (0.7-1.3); GLOMERULAR FILTRATION RATE 55; GLUCOSE 96 mg/dL (70-100); POTASSIUM 3.8 mEq/L (3.5-5.2); SODIUM 139 mEq/L (134-144)
[2016-10-10 12:52] LABS: ADD SCAN? NO
[2016-10-10] MEDS: SENNOSIDES 1 TAB PO PRN (13:31)
[2016-10-10 13:50] LABS: MICROCYTES 2+
[2016-10-10 13:51] LABS: ELLIPTOCYTES 1+; MACROCYTES 2+; PLATELET ESTIMATE ADEQUATE (ADEQ); POLYCHROMASIA 1+; SCHISTOCYTES 1+
[2016-10-10 13:52] LABS: SMUDGE CELLS 1+
--- NOTE | 2016-10-10 14:09 | SOAPPROG ---
SOAP Progress Note Assessment/Plan: Assessment: Hypoxia, fever and lethargy: CXR +/- pulmonary edema, with cardiomegaly. Chart reviewed: no echocardiogram done in past 3 years. BNP borderline elevated. Creatinine increase to 1.3 from 1.0 but has been as high as 1.5 during recent hospitalization. UA ordered. * Hip fracture following a fall at home, status post ORIF 09/27/16 with debility. Initial FIM 44 on 10/07/16. Ambulated 25', co-treat, wheelchair following. Motor planning deficit; inconsistent mobility. Continue PT & OT to optimize his mobility and functional status regarding ADLs. Goal to reduce burden of care to 1 person assist. * Dysphagia noted in the hospital, on a dysphagia 2 diet. He will have therapy with speech and language pathology to optimize his swallowing with the least restrictive diet. * Cognitive impairment with prominent memory loss and confabulation. HANDBAG PARTS CUTTER reports SLUMS 04/15 in hospital. Continue attempts at cognitive rehabilitation. * Anemia, due to chronic lymphocytic leukemia. Improved with h/h 8.4/27.9 on , compared to 7/7 & 25.3 on 10/03/16; 8.9 on 10/10/16. * Altered LOC: +/- improved with decrease in lorazepam from 2 mg QHS to 1 mg QHS on 10/04/16. Continue to monitor. Will get brain MRI on a routine basis per 's request; suggested in head CT report 10/01/16. * Hypertension. Adequate control. Continue amlodipine 10 mg QD, lisinopril 20 mg QD and propranolol 60 mg QD. H/O hyponatremia with hydrochlorothiazide, so he may not be a candidate for diuretic therapy. * Benign prostatic hypertrophy. Continue tamsulosin. Improved voiding with resolution of constipation and reduced need for opiate. Still with incontinence at night. Initiate timed voiding during the day beginning . * SUKH: related to CHF? Infection? Post-obstructive (but PVRs no longer significantly elevated)? Will monitor, especially if he is to be diuresed. * Constipation: continue bowel program. * Bipolar disorder. Continue quetiapine 200 mg q.h.s., oxcarbazepine 1200 mg daily and 600 mg q.h.s., aripiprazole 40 mg daily and lorazepam, but will reduce lorazepam form 2 mg QHS to 1 mg QHS due to somnolence noted morning of . Continue PRN alprazolam. * Likely osteoporosis with history of prior fractures and current fracture. Continue vitamin D replacement. Advise bone density testing after his discharge. * Obstructive sleep apnea, intolerant of CPAP. Oxygen at night will be used and he will be monitored for any complications. * Chronic lymphocytic leukemia is managed per Oncology. * Hypogammaglobulinemia, missed repeat dosing of IVIG on 10/07/2016. D/W Heme/ Onc office 10/08/16 re possibility of nurse coming to rehabilitation unit week of 10/11/16 to administer. Will follow-up week of 10/11/16. * Tongue coating resolved. 10/10/16 14:04 Subjective: Hypoxic and lethargic this morning. CXR and labs obtained. No complaints but reduced responsiveness. continues to request brain MRI. Objective: Vital Signs Temp Pulse Resp BP Pulse Ox 37.6 C 94 18 158/94 H 88 L 10/10/16 13:59 10/10/16 08:41 10/10/16 08:29 10/10/16 08:41 10/10/16 13:59 Laboratory Results 10/10/16 10:30 10/10/16 10:30 10/09/16 10/10/16 10/11/16 05:59 05:59 05:59 Intake Total 2050 500 540 Output Total 290 30 Balance 1760 470 540 Physical Exam - Physical Exam General Appearance: WD/WN, alert, no apparent distress, obese EENT: No pharyngeal erythema, No tonsillar exudate Respiratory: normal breath sounds, crackles (few at bases), No rhonchi, No wheezing Cardiac/Chest: regular rate, rhythm, No edema Skin: normal color, warm/dry Neuro/Psych: alert, normal mood/affect ICD10 Worksheet Patient Problems: Problems Problem Status Diagnosed CLL (chronic lymphocytic leukemia) Acute Hip fracture, left Acute Hypoxemia Acute
[2016-10-10 15:44] LABS: COLOR YELLOW; LEUKOCYTE ESTERASE,URINE TRACE (NEGATIVE); NITRITE,URINE NEGATIVE (NEGATIVE)
[2016-10-10 15:47] LABS: BACTERIA 4+ /hpf (NONE SEEN); MUCUS TRACE /lpf (NONE-1+); WBC,URINE 25-50 /hpf (0-3)
[2016-10-10] MEDS: CIPROFLOXACIN 250 MG TAB PO SCH (17:33)
[2016-10-10] MEDS: ASPIRIN 81 MG CHEWABLE TAB PO SCH (20:11)
[2016-10-10] MEDS: CHOLECALCIFEROL VIT D3 1,000 UNITS TAB PO SCH (20:12)
[2016-10-10] MEDS: LORazepam 1 MG TAB PO SCH (20:12)
[2016-10-10] MEDS: TAMSULOSIN HCL 0.4 MG CAP PO SCH (20:13)
[2016-10-10] MEDS: QUEtiapine FUMARATE 100 MG TAB PO SCH (20:13)
[2016-10-11] MEDS: IPRATROPIUM/ALBUTEROL 3 ML DEYVIAL IH SCH ×5 (00:14→23:49)
[2016-10-11] MEDS: oxyCODONE IR 5 MG TAB PO PRN (04:34)
[2016-10-11] MEDS: ACETAMINOPHEN 500 MG TAB PO SCH ×3 (05:56→20:27)
[2016-10-11] MEDS: amLODIPine BESYLATE 5 MG TAB PO SCH (08:48)
[2016-10-11] MEDS: LISINOPRIL 20 MG TAB PO SCH (08:49)
[2016-10-11] MEDS: ENOXAPARIN 40 MG/0.4 ML SYR SC SCH (08:49)
[2016-10-11] MEDS: ARIPiprazole 10 MG TAB PO SCH (08:49)
[2016-10-11] MEDS: POLYETHYLENE GLYCOL 3350 17 GM PKT PO SCH (08:50)
[2016-10-11] MEDS: OXcarbazepine 300 MG TAB PO SCH ×2 (08:50→20:28)
[2016-10-11] MEDS: PROPRANOLOL SR 60 MG CAP PO SCH (08:51)
[2016-10-11] MEDS: valACYclovir 500 MG TAB PO SCH (08:52)
[2016-10-11] MEDS: CIPROFLOXACIN 250 MG TAB PO SCH ×2 (10:00→20:28)
--- NOTE | 2016-10-11 11:40 | SOAPPROG ---
SOAP Progress Note Assessment/Plan: Assessment: Hypoxia, fever and lethargy: CXR +/- pulmonary edema, with cardiomegaly. Chart reviewed: no echocardiogram done in past 3 years. BNP borderline elevated. Creatinine increase to 1.3 from 1.0 but has been as high as 1.5 during recent hospitalization. UA ordered. * Hip fracture following a fall at home, status post ORIF 09/27/16 with debility. Initial FIM 44 on 10/07/16. Ambulated 25', co-treat, wheelchair following. Motor planning deficit; inconsistent mobility. Continue PT & OT to optimize his mobility and functional status regarding ADLs. Goal to reduce burden of care to 1 person assist. * Dysphagia noted in the hospital, on a dysphagia 2 diet. He will have therapy with speech and language pathology to optimize his swallowing with the least restrictive diet. * Cognitive impairment with prominent memory loss and confabulation. TABLE KEEPER reports SLUMS 04/15 in hospital. Continue attempts at cognitive rehabilitation. * Anemia, due to chronic lymphocytic leukemia. Improved with h/h 8.4/27.9 on , compared to 7/7 & 25.3 on 10/03/16; 8.9 on 10/10/16. * Altered LOC: +/- improved with decrease in lorazepam from 2 mg QHS to 1 mg QHS on 10/04/16. Continue to monitor. Will get brain MRI on a routine basis per 's request; suggested in head CT report 10/01/16. * UTI: on Cipro; last UTI was Enterobacter sensitive to Cipro. Await C&S. * Hypoxia: CHF possible per CXR and indeterminate BNP level. Exam not c/w CHF. However, will trial a dose of furosemide. D/C amlodipine due to low BP. Recheck BMP in AM. * SUKH: related to CHF? Infection? Post-obstructive (but PVRs no longer significantly elevated)? Will monitor, especially if he is to be diuresed. * Hypertension. Adequate control. Continue amlodipine 10 mg QD, lisinopril 20 mg QD and propranolol 60 mg QD. H/O hyponatremia with hydrochlorothiazide, so he may not be a candidate for diuretic therapy. Chronic stable issues: * Benign prostatic hypertrophy. Continue tamsulosin. Improved voiding with resolution of constipation and reduced need for opiate. Still with incontinence at night. Initiate timed voiding during the day beginning . * Constipation: continue bowel program. * Bipolar disorder. Continue quetiapine 200 mg q.h.s., oxcarbazepine 1200 mg daily and 600 mg q.h.s., aripiprazole 40 mg daily and lorazepam, but will reduce lorazepam form 2 mg QHS to 1 mg QHS due to somnolence noted morning of . Continue PRN alprazolam. * Likely osteoporosis with history of prior fractures and current fracture. Continue vitamin D replacement. Advise bone density testing after his discharge. * Obstructive sleep apnea, intolerant of CPAP. Oxygen at night will be used and he will be monitored for any complications. * Chronic lymphocytic leukemia is managed per Oncology. * Hypogammaglobulinemia, missed repeat dosing of IVIG on 10/07/2016. D/W Heme/ Onc office 10/08/16 re possibility of nurse coming to rehabilitation unit week of 10/11/16 to administer. Will follow-up week of 10/11/16. * Tongue coating resolved. 10/11/16 11:43 Subjective: No complaints. Denies cough, dyspnea, F/C. Objective: Vital Signs Temp Pulse Resp BP Pulse Ox 36.9 C 71 18 106/62 95 10/11/16 04:47 10/11/16 08:51 10/11/16 08:00 10/11/16 08:51 10/11/16 08:00 Laboratory Results 10/10/16 10:30 10/10/16 10:30 10/10/16 10/11/16 10/12/16 05:59 05:59 05:59 Intake Total 500 860 Output Total 30 250 Balance 470 610 Physical Exam - Physical Exam General Appearance: WD/WN, alert, no apparent distress Respiratory: normal breath sounds, No crackles, No rhonchi, No wheezing Cardiac/Chest: regular rate, rhythm, No edema, No JVD Neuro/Psych: alert, normal mood/affect, other (Slow responses, paucity of thought) ICD10 Worksheet Patient Problems: Problems Problem Status Diagnosed CLL (chronic lymphocytic leukemia) Acute Hip fracture, left Acute Hypoxemia Acute
[2016-10-11] MEDS ORDERED: FUROSEMIDE 20 MG TAB PO ONE (12:03)
[2016-10-11] MEDS: NYSTATIN 15 GM CR TUBE TP SCH ×2 (14:04→20:27)
--- NOTE | 2016-10-11 16:56 | MR ---
MRI of the Brain (Without Contrast) October 11, 2016 Clinical Indication: Possible subacute CVA. Technique: T1-weighted images were acquired axially and sagittally from the foramen magnum to the marleen mackenzie. Axial FLAIR, fast T2-weighted, and diffusion-weighted axial images were obtained without contra st. Findings: Underlying cerebral and cerebellar atrophy is associated with moderate ventriculomegaly and white matter microvascular ischemic gliosis. No evidence of acute cortical ischemia on diffusion-weighted imaging. No evidence of intracranial hem orrhage, mass or mass effect, midline shift. Craniocervical junction appears normal. Carotid and vert ebrobasilar flow-voids are present. Paranasal sinuses appear unremarkably aerated. Impression: Underlying atrophy and white matter microvascular ischemic gliosis, without evidence of a cute or subacute ischemia.
[2016-10-11] MEDS: SENNOSIDES 1 TAB PO PRN (18:28)
[2016-10-11] MEDS: LORazepam 1 MG TAB PO SCH (20:27)
[2016-10-11] MEDS: CHOLECALCIFEROL VIT D3 1,000 UNITS TAB PO SCH (20:27)
[2016-10-11] MEDS: TAMSULOSIN HCL 0.4 MG CAP PO SCH (20:28)
[2016-10-11] MEDS: QUEtiapine FUMARATE 100 MG TAB PO SCH (20:28)
[2016-10-11] MEDS: ASPIRIN 81 MG CHEWABLE TAB PO SCH (20:28)
[2016-10-12] MEDS: IPRATROPIUM/ALBUTEROL 3 ML DEYVIAL IH SCH ×3 (05:15→18:11)
[2016-10-12] MEDS: ACETAMINOPHEN 500 MG TAB PO SCH ×3 (05:15→21:59)
[2016-10-12 08:38] LABS: ANION GAP 12 mEq/L (8-16); CALCIUM 9.8 mg/dL (8.5-10.4); CARBON DIOXIDE 25 mEq/l (22-31); CHLORIDE 101 mEq/L (97-110); CREATININE 1.2 mg/dL (0.7-1.3); GLOMERULAR FILTRATION RATE > 60; GLUCOSE 92 mg/dL (70-100); POTASSIUM 4.2 mEq/L (3.5-5.2); SODIUM 138 mEq/L (134-144)
[2016-10-12] MEDS: PROPRANOLOL SR 60 MG CAP PO SCH (08:41)
[2016-10-12] MEDS: ARIPiprazole 10 MG TAB PO SCH (08:42)
[2016-10-12] MEDS: LISINOPRIL 20 MG TAB PO SCH (08:43)
[2016-10-12] MEDS: valACYclovir 500 MG TAB PO SCH (08:44)
[2016-10-12] MEDS: ENOXAPARIN 40 MG/0.4 ML SYR SC SCH (08:47)
[2016-10-12] MEDS: OXcarbazepine 300 MG TAB PO SCH ×3 (08:48→20:01)
[2016-10-12] MEDS: POLYETHYLENE GLYCOL 3350 17 GM PKT PO SCH (08:57)
[2016-10-12] MEDS: FUROSEMIDE 20 MG TAB PO SCH ×2 (10:16→10:17)
[2016-10-12] MEDS: CIPROFLOXACIN 250 MG TAB PO SCH ×2 (10:16→19:36)
[2016-10-12] MEDS: NYSTATIN 15 GM CR TUBE TP SCH ×2 (10:20→19:47)
--- NOTE | 2016-10-12 10:50 | SOAPPROG ---
SOAP Progress Note Assessment/Plan: Assessment: * Hip fracture following a fall at home, status post ORIF 09/27/16 with debility. Initial FIM 44 on 10/07/16. Ambulated 25', co-treat, wheelchair following. Motor planning deficit; inconsistent mobility. Continue PT & OT to optimize his mobility and functional status regarding ADLs. Goal to reduce burden of care to 1 person assist. * Dysphagia noted in the hospital, on a dysphagia 2 diet. He will have therapy with speech and language pathology to optimize his swallowing with the least restrictive diet. * Cognitive impairment with prominent memory loss and confabulation. CATERERS HELPER reports SLUMS 04/15 in hospital. Continue attempts at cognitive rehabilitation. No new CVA on MRI 10/11/16; obtained per 's request. Mental status +/- improved with decrease in lorazepam from 2 mg QHS to 1 mg QHS on 10/04/16. * UTI. Urine culture growing Klebsiella, sensitive to levofloxacin. Confirmed Ciprofloxacin sensitivity with lab. Continue ciprofloxacin 7 days total. May have improved mental status with treatment. * Hypoxia: CHF possible per CXR and indeterminate BNP level. Exam not c/w CHF. However, oxygenation improved today after 2 doses of furosemide. D/C amlodipine due to low BP. * Anemia, due to chronic lymphocytic leukemia. Improved with h/h 8.4/27.9 on , compared to 7/7 & 25.3 on 10/03/16; 8.9 on 10/10/16. * SUKH: related to CHF? Infection? Post-obstructive (but PVRs no longer significantly elevated)? Improved on labs 10/12/16 with creatinine down to 1.2 from 1.3. * Hypertension. Adequate control. Continue amlodipine 10 mg QD, lisinopril 20 mg QD and propranolol 60 mg QD. H/O hyponatremia with hydrochlorothiazide, so he may not be a candidate for diuretic therapy. Chronic stable issues: * Benign prostatic hypertrophy. Continue tamsulosin. Improved voiding with resolution of constipation and reduced need for opiate. Still with incontinence at night. Initiate timed voiding during the day beginning . * Constipation: continue bowel program. * Bipolar disorder. Continue quetiapine 200 mg q.h.s., oxcarbazepine 1200 mg daily and 600 mg q.h.s., aripiprazole 40 mg daily and lorazepam, but will reduce lorazepam form 2 mg QHS to 1 mg QHS due to somnolence noted morning of . Continue PRN alprazolam. * Likely osteoporosis with history of prior fractures and current fracture. Continue vitamin D replacement. Advise bone density testing after his discharge. * Obstructive sleep apnea, intolerant of CPAP. Oxygen at night will be used and he will be monitored for any complications. * Chronic lymphocytic leukemia is managed per Oncology. * Hypogammaglobulinemia, missed repeat dosing of IVIG on 10/07/2016. D/W Heme/ Onc office 10/08/16 re possibility of nurse coming to rehabilitation unit week of 10/11/16 to administer. Will follow-up week of 10/11/16. * Tongue coating resolved. 10/12/16 10:59 Subjective: No complaints. Not sleepy this AM. Per OT, did better at transferring. Says sleep was interrupted by need to urinate. Otherwise no urinary symptoms. Objective: Vital Signs Temp Pulse Resp BP Pulse Ox 36.6 C 68 18 115/67 95 10/12/16 06:00 10/12/16 06:00 10/12/16 06:00 10/12/16 06:00 10/12/16 06:00 Microbiology 10/10/16 15:44 Urine Culture - Final Urine,Clean Catch Klebsiella Pneumoniae Ssp Pneu Laboratory Results 10/10/16 10:30 10/12/16 06:10 10/11/16 10/12/16 10/13/16 05:59 05:59 05:59 Intake Total 860 1020 600 Output Total 250 1650 400 Balance 610 -630 200 Physical Exam - Physical Exam General Appearance: WD/WN, alert, no apparent distress Respiratory: normal breath sounds, No crackles, No rhonchi, No wheezing Cardiac/Chest: regular rate, rhythm, No edema, No JVD Skin: normal color, warm/dry Neuro/Psych: alert, normal mood/affect ICD10 Worksheet Patient Problems: Problems Problem Status Diagnosed CLL (chronic lymphocytic leukemia) Acute Hip fracture, left Acute Hypoxemia Acute
[2016-10-12] MEDS: LORazepam 1 MG TAB PO SCH (19:35)
[2016-10-12] MEDS: QUEtiapine FUMARATE 100 MG TAB PO SCH (19:36)
[2016-10-12] MEDS: CHOLECALCIFEROL VIT D3 1,000 UNITS TAB PO SCH (19:36)
[2016-10-12] MEDS: TAMSULOSIN HCL 0.4 MG CAP PO SCH (19:36)
[2016-10-12] MEDS: ASPIRIN 81 MG CHEWABLE TAB PO SCH (19:37)
[2016-10-13] MEDS: IPRATROPIUM/ALBUTEROL 3 ML DEYVIAL IH SCH ×5 (00:15→23:20)
[2016-10-13] MEDS: ACETAMINOPHEN 500 MG TAB PO SCH ×3 (04:47→23:21)
[2016-10-13] MEDS: ARIPiprazole 10 MG TAB PO SCH (09:34)
[2016-10-13] MEDS: LISINOPRIL 20 MG TAB PO SCH (09:35)
[2016-10-13] MEDS: PROPRANOLOL SR 60 MG CAP PO SCH (09:36)
[2016-10-13] MEDS: valACYclovir 500 MG TAB PO SCH (09:36)
[2016-10-13] MEDS: OXcarbazepine 300 MG TAB PO SCH ×2 (09:36→19:40)
[2016-10-13] MEDS: POLYETHYLENE GLYCOL 3350 17 GM PKT PO SCH (09:41)
[2016-10-13] MEDS: ENOXAPARIN 40 MG/0.4 ML SYR SC SCH (09:41)
[2016-10-13] MEDS: NYSTATIN 15 GM CR TUBE TP SCH ×2 (09:42→19:42)
[2016-10-13] MEDS: CIPROFLOXACIN 250 MG TAB PO SCH ×2 (10:27→19:41)
--- NOTE | 2016-10-13 11:25 | SOAPPROG ---
SOAP Progress Note Assessment/Plan: Assessment: * Hip fracture following a fall at home, status post ORIF 09/27/16 with debility. Initial FIM 44 on 10/07/16; gain to 55 as of 10/13/16. Ambulating to bathroom with nursing; easier to manage than wheelchair transfer in bathroom. Motor planning deficit; inconsistent mobility, inconsistent performance with ADLs. Continue PT & OT to optimize his mobility and functional status regarding ADLs. Goal to reduce burden of care to 1 person assist. * Dysphagia noted in the hospital, on a dysphagia 2 diet, thin liquids. Per SPREAD CUTTER , he's unwilling to trial less soft food texture. * Cognitive impairment with prominent memory loss and confabulation. SPREAD CUTTER reports SLUMS 04/15 in hospital. Continue attempts at cognitive rehabilitation. No new CVA on MRI 10/11/16; obtained per 's request. Mental status +/- improved with decrease in lorazepam from 2 mg QHS to 1 mg QHS on 10/04/16. * UTI. Urine culture growing Klebsiella, sensitive to levofloxacin. Confirmed Ciprofloxacin sensitivity with lab. Continue ciprofloxacin 7 days total. May have improved mental status with treatment. * Hypoxia: CHF possible per CXR and indeterminate BNP level. Exam not c/w CHF. However, oxygenation improved with furosemide 20 mg QD. D/C amlodipine due to low BP. Recheck BMP, BNP in AM 10/14/16 re CHF, renal function and furosemide use. * Anemia, due to chronic lymphocytic leukemia. Improved with h/h 8.4/27.9 on , compared to 7/7 & 25.3 on 10/03/16; 8.9 on 10/10/16. * SUKH: related to CHF? Infection? Post-obstructive (but PVRs no longer significantly elevated)? Improved on labs 10/12/16 with creatinine down to 1.2 from 1.3. * Hypertension. Adequate control. D/C'd amlodipine 10 mg QD. * HTN: D/C'd amlodipine. Continue lisinopril 20 mg QD and propranolol 60 mg QD. Continue to monitor. * Hypogammaglobulinemia, missed repeat dosing of IVIG on 10/07/2016. D/W Heme/ Onc office 10/08/16 re possibility of nurse coming to rehabilitation unit week of 10/11/16 to administer. Will follow-up week of 10/11/16. Chronic stable issues: * Benign prostatic hypertrophy. Continue tamsulosin. Improved voiding with resolution of constipation and reduced need for opiate. Still with incontinence at night. Initiate timed voiding during the day beginning . * Constipation: continue bowel program. * Bipolar disorder. Continue quetiapine 200 mg q.h.s., oxcarbazepine 1200 mg daily and 600 mg q.h.s., aripiprazole 40 mg daily and lorazepam, but will reduce lorazepam form 2 mg QHS to 1 mg QHS due to somnolence noted morning of . Continue PRN alprazolam. * Likely osteoporosis with history of prior fractures and current fracture. Continue vitamin D replacement. Advise bone density testing after his discharge. * Obstructive sleep apnea, intolerant of CPAP. Oxygen at night will be used and he will be monitored for any complications. * Chronic lymphocytic leukemia is managed per Oncology. * Tongue coating resolved. Attended staffing, 15 min. D/W case mgmt, nursing, PT, OT, SPREAD CUTTER. will not be able to care for him at home, due to level of care needed for mobility, ADLs and cognition. Plan for SNF discharge when bed is available. 10/13/16 11:18 Subjective: Has frequent urination and some incontinence. No dysuria. No f/c, no dyspnea/ cough. Was on 3L O2 overnight, then 2L during the day today. Objective: Vital Signs Temp Pulse Resp BP Pulse Ox 36.8 C 66 16 129/66 H 94 10/13/16 08:00 10/13/16 08:00 10/13/16 08:00 10/13/16 08:00 10/13/16 08:00 Microbiology 10/10/16 15:44 Urine Culture - Final Urine,Clean Catch Klebsiella Pneumoniae Ssp Pneu Laboratory Results 10/10/16 10:30 10/12/16 06:10 10/12/16 10/13/16 10/14/16 05:59 05:59 05:59 Intake Total 1020 1400 Output Total 1650 925 Balance -630 475 Physical Exam - Physical Exam General Appearance: WD/WN, alert, no apparent distress Respiratory: normal breath sounds, No crackles, No rhonchi, No wheezing Cardiac/Chest: regular rate, rhythm, No edema Skin: normal color, warm/dry Neuro/Psych: alert, normal mood/affect ICD10 Worksheet Patient Problems: Problems Problem Status Diagnosed CLL (chronic lymphocytic leukemia) Acute Hip fracture, left Acute Hypoxemia Acute
[2016-10-13] MEDS ORDERED: IMMUNE GLOBULIN 20 GM/200 ML VIAL IV ONE (16:23)
[2016-10-13] MEDS ORDERED: ACETAMINOPHEN 500 MG TAB PO ONE (16:24)
[2016-10-13] MEDS: TAMSULOSIN HCL 0.4 MG CAP PO SCH (19:41)
[2016-10-13] MEDS: QUEtiapine FUMARATE 100 MG TAB PO SCH (19:41)
[2016-10-13] MEDS: ASPIRIN 81 MG CHEWABLE TAB PO SCH (19:42)
[2016-10-13] MEDS: CHOLECALCIFEROL VIT D3 1,000 UNITS TAB PO SCH (19:42)
[2016-10-13] MEDS: LORazepam 1 MG TAB PO SCH (19:42)
[2016-10-14] MEDS: ACETAMINOPHEN 500 MG TAB PO SCH ×3 (05:07→20:37)
[2016-10-14] MEDS: IPRATROPIUM/ALBUTEROL 3 ML DEYVIAL IH SCH ×4 (05:07→23:47)
[2016-10-14] MEDS: ARIPiprazole 10 MG TAB PO SCH (08:56)
[2016-10-14] MEDS: ENOXAPARIN 40 MG/0.4 ML SYR SC SCH (08:56)
[2016-10-14] MEDS: LISINOPRIL 20 MG TAB PO SCH (08:57)
[2016-10-14] MEDS: FUROSEMIDE 20 MG TAB PO SCH (08:57)
[2016-10-14] MEDS: NYSTATIN 15 GM CR TUBE TP SCH ×2 (08:58→20:35)
[2016-10-14] MEDS: OXcarbazepine 300 MG TAB PO SCH ×2 (08:58→20:36)
[2016-10-14] MEDS: POLYETHYLENE GLYCOL 3350 17 GM PKT PO SCH (08:58)
[2016-10-14] MEDS: CIPROFLOXACIN 250 MG TAB PO SCH ×2 (08:59→20:37)
[2016-10-14] MEDS: SENNOSIDES 1 TAB PO PRN (08:59)
[2016-10-14] MEDS: PROPRANOLOL SR 60 MG CAP PO SCH (08:59)
[2016-10-14] MEDS: valACYclovir 500 MG TAB PO SCH (09:00)
[2016-10-14] MEDS: oxyCODONE IR 5 MG TAB PO PRN (11:53)
--- NOTE | 2016-10-14 13:32 | SOAPPROG ---
SOAP Progress Note Assessment/Plan: Assessment: * Hip fracture following a fall at home, status post ORIF 09/27/16 with debility. Initial FIM 44 on 10/07/16; gain to 55 as of 10/13/16. Ambulating to bathroom with nursing; easier to manage than wheelchair transfer in bathroom. Motor planning deficit; inconsistent mobility, inconsistent performance with ADLs. Continue PT & OT to optimize his mobility and functional status regarding ADLs. Goal to reduce burden of care to 1 person assist. * Dysphagia noted in the hospital, on a dysphagia 2 diet, thin liquids. Per MAGAZINE JOURNALIST , he's unwilling to trial less soft food texture. * Cognitive impairment with prominent memory loss and confabulation. MAGAZINE JOURNALIST reports SLUMS 04/15 in hospital. Continue attempts at cognitive rehabilitation. No new CVA on MRI 10/11/16; obtained per 's request. Mental status +/- improved with decrease in lorazepam from 2 mg QHS to 1 mg QHS on 10/04/16. * UTI. Urine culture growing Klebsiella, sensitive to levofloxacin. Confirmed Ciprofloxacin sensitivity with lab. Continue ciprofloxacin 7 days total. May have improved mental status with treatment. * Hypoxia: CHF possible per CXR and indeterminate BNP level. Exam not c/w CHF. However, oxygenation improved with furosemide 20 mg QD. Recheck BMP, BNP in AM 10/15/16 re CHF, renal function and furosemide use. * Anemia, due to chronic lymphocytic leukemia. Improved with h/h 8.4/27.9 on , compared to 7/7 & 25.3 on 10/03/16; 8.9 on 10/10/16. Recheck Aimee 10/15. * SUKH: related to CHF? Infection? Post-obstructive (but PVRs no longer significantly elevated)? Improved on labs 10/12/16 with creatinine down to 1.2 from 1.3. * Hypertension. Adequate control. D/C'd amlodipine 10 mg QD. * HTN: D/C'd amlodipine; BP increasing; will resume 5 mg QD starting 10/15/16. Continue lisinopril 20 mg QD and propranolol 60 mg QD. Continue to monitor. * Hypogammaglobulinemia, missed repeat dosing of IVIG on 10/07/2016. D/W Heme/ Onc office 10/08/16 re possibility of nurse coming to rehabilitation unit week of 10/11/16 to administer. Oncology and Rehabilitation nurses working on a plan. Chronic stable issues: * Benign prostatic hypertrophy. Continue tamsulosin. Improved voiding with resolution of constipation and reduced need for opiate. Still with incontinence at night. Initiate timed voiding during the day beginning . * Constipation: continue bowel program. * Bipolar disorder. Continue quetiapine 200 mg q.h.s., oxcarbazepine 1200 mg daily and 600 mg q.h.s., aripiprazole 40 mg daily and lorazepam, but will reduce lorazepam form 2 mg QHS to 1 mg QHS due to somnolence noted morning of . Continue PRN alprazolam. * Likely osteoporosis with history of prior fractures and current fracture. Continue vitamin D replacement. Advise bone density testing after his discharge. * Obstructive sleep apnea, intolerant of CPAP. Oxygen at night will be used and he will be monitored for any complications. * Chronic lymphocytic leukemia is managed per Oncology. * Tongue coating resolved. will not be able to care for him at home, due to level of care needed for mobility, ADLs and cognition. Plan for SNF discharge when bed is available. 10/14/16 13:29 Subjective: No complaints. Enjoying lunch. Denies f/c, cough, dyspnea. Objective: Vital Signs Temp Pulse Resp BP Pulse Ox 36.8 C 79 16 145/77 H 97 10/14/16 05:37 10/14/16 08:59 10/14/16 11:56 10/14/16 08:59 10/14/16 11:56 Laboratory Results 10/10/16 10:30 10/12/16 06:10 10/13/16 10/14/16 10/15/16 05:59 05:59 05:59 Intake Total 1400 680 Output Total 925 400 683 Balance 475 -400 -3 Physical Exam - Physical Exam General Appearance: WD/WN, alert, no apparent distress Respiratory: normal breath sounds, No crackles, No rhonchi, No wheezing Cardiac/Chest: No edema Skin: normal color, warm/dry Neuro/Psych: alert, normal mood/affect ICD10 Worksheet Patient Problems: Problems Problem Status Diagnosed CLL (chronic lymphocytic leukemia) Acute Hip fracture, left Acute Hypoxemia Acute
[2016-10-14] MEDS ORDERED: ACETAMINOPHEN 500 MG TAB PO ONE (14:00)
[2016-10-14] MEDS ORDERED: IMMUNE GLOBULIN 20 GM/200 ML VIAL IV ONE (14:00)
[2016-10-14] MEDS ORDERED: IMMUNE GLOBULIN 100 ML IV ONE (14:00)
[2016-10-14] MEDS: TAMSULOSIN HCL 0.4 MG CAP PO SCH (20:36)
[2016-10-14] MEDS: QUEtiapine FUMARATE 100 MG TAB PO SCH (20:36)
[2016-10-14] MEDS: CHOLECALCIFEROL VIT D3 1,000 UNITS TAB PO SCH (20:36)
[2016-10-14] MEDS: ASPIRIN 81 MG CHEWABLE TAB PO SCH (20:37)
[2016-10-14] MEDS: LORazepam 1 MG TAB PO SCH (20:37)
[2016-10-15] MEDS: IPRATROPIUM/ALBUTEROL 3 ML DEYVIAL IH SCH ×3 (05:09→18:02)
[2016-10-15] MEDS: ACETAMINOPHEN 500 MG TAB PO SCH ×3 (05:09→21:03)
[2016-10-15] MEDS: ARIPiprazole 10 MG TAB PO SCH (08:23)
[2016-10-15] MEDS: ENOXAPARIN 40 MG/0.4 ML SYR SC SCH (08:24)
[2016-10-15] MEDS: FUROSEMIDE 20 MG TAB PO SCH (08:25)
[2016-10-15] MEDS: NYSTATIN 15 GM CR TUBE TP SCH ×2 (08:26→21:03)
[2016-10-15] MEDS: LISINOPRIL 20 MG TAB PO SCH (08:26)
[2016-10-15] MEDS: OXcarbazepine 300 MG TAB PO SCH ×2 (08:27→20:43)
[2016-10-15] MEDS: POLYETHYLENE GLYCOL 3350 17 GM PKT PO SCH (08:28)
[2016-10-15] MEDS: valACYclovir 500 MG TAB PO SCH (08:28)
[2016-10-15] MEDS: PROPRANOLOL SR 60 MG CAP PO SCH (08:28)
[2016-10-15] MEDS: oxyCODONE IR 5 MG TAB PO PRN ×2 (08:30→18:13)
[2016-10-15] MEDS: CIPROFLOXACIN 250 MG TAB PO SCH ×2 (08:30→20:43)
[2016-10-15 08:41] LABS: ABSOLUTE NRBC COUNT 0.17 10^3/uL (0-0.01); ADD DIFF? YES; ADD MORPH? NO; ATYPICAL LYMPHOCYTE FLAG 30 (0-99); FRAGMENT RBC FLAG 20 (0-99); HEMATOCRIT 28.7 % (40.0-51.0); HEMOGLOBIN 8.5 g/dL (13.7-17.5); LEFT SHIFT FLG 20 (0-99); LIPEMIA HEMOLYSIS FLAG 70 (0-99); MEAN CELL HEMOGLOBIN 31.8 pg (27.9-34.1); MEAN CELL HEMOGLOBIN CONCENTR. 29.6 g/dL (32.4-36.7); MEAN CELL VOLUME 107.5 fL (81.5-99.8); MEAN PLATELET VOLUME 10.8 fL (8.7-11.7); NRBC-AUTO% 0.1 % (0.0-0.2); PLATELET CLUMPS FLAG 0 (0-99); PLATELET COUNT 195 10^3/uL (150-400); RED BLOOD CELL COUNT 2.67 10^6/uL (4.40-6.38); RED CELL DISTRIBUTION WIDTH 19.5 % (11.5-15.2)
[2016-10-15 08:44] LABS: ADD SCAN? NO
[2016-10-15 09:00] LABS: ANION GAP 11 mEq/L (8-16); CALCIUM 10.6 mg/dL (8.5-10.4); CARBON DIOXIDE 29 mEq/l (22-31); CHLORIDE 97 mEq/L (97-110); CREATININE 1.2 mg/dL (0.7-1.3); GLOMERULAR FILTRATION RATE > 60; GLUCOSE 92 mg/dL (70-100); POTASSIUM 4.5 mEq/L (3.5-5.2); SODIUM 137 mEq/L (134-144)
[2016-10-15] MEDS ORDERED: ACETAMINOPHEN 500 MG TAB PO ONE (10:30)
[2016-10-15] MEDS ORDERED: IMMUNE GLOBULIN 100 ML IV ONE (10:30)
[2016-10-15] MEDS ORDERED: IMMUNE GLOBULIN 20 GM/200 ML VIAL IV ONE (10:30)
[2016-10-15 11:18] LABS: MACROCYTES 1+; PLATELET ESTIMATE ADEQUATE (ADEQ); SMUDGE CELLS 1+
[2016-10-15 11:36] LABS: POLYCHROMASIA 1+
[2016-10-15 11:39] LABS: HOWELL-JOLLY BODIES 1+; SCHISTOCYTES 1+
--- NOTE | 2016-10-15 13:32 | SOAPPROG ---
SOAP Progress Note Assessment/Plan: Assessment: * Hip fracture following a fall at home, status post ORIF 09/27/16 with debility. Initial FIM 44 on 10/07/16; gain to 55 as of 10/13/16. Ambulating to bathroom with nursing; easier to manage than wheelchair transfer in bathroom. Motor planning deficit; inconsistent mobility, inconsistent performance with ADLs. Continue PT & OT to optimize his mobility and functional status regarding ADLs. Goal to reduce burden of care to 1 person assist. * Dysphagia noted in the hospital, on a dysphagia 2 diet, thin liquids. Per MANAGER OPERATIONS RESEARCH , he's unwilling to trial less soft food texture. * Cognitive impairment with prominent memory loss and confabulation. MANAGER OPERATIONS RESEARCH reports SLUMS 04/15 in hospital. Continue attempts at cognitive rehabilitation. No new CVA on MRI 10/11/16; obtained per 's request. Mental status +/- improved with decrease in lorazepam from 2 mg QHS to 1 mg QHS on 10/04/16. * UTI. Urine culture growing Klebsiella, sensitive to levofloxacin. Confirmed Ciprofloxacin sensitivity with lab. Continue ciprofloxacin 7 days total, through . May have improved mental status with treatment. * Hypoxia: CHF possible per CXR and indeterminate BNP level. Oxygenation improved with furosemide 20 mg QD. Renal function unchanged and BNP improved on labs 10/15/16. * Anemia, due to chronic lymphocytic leukemia. Improved with h/h 8.4/27.9 on , compared to 7/ & 25.3 on 10/03/16; 8.9 on 10/10/16. Recheck Aimee 10/15. * SUKH: related to CHF? Infection? Post-obstructive (but PVRs no longer significantly elevated)? Improved on labs 10/12/16 with creatinine down to 1.2 from 1.3. * Hypertension. Adequate control. D/C'd amlodipine 10 mg QD. * HTN: D/C'd amlodipine; BP increasing; will resume 5 mg QD starting 10/15/16. Continue lisinopril 20 mg QD and propranolol 60 mg QD. Continue to monitor. * Hypogammaglobulinemia: received IVIG on 10/15/2016. Continue Q 3 week dosing. Chronic stable issues: * Benign prostatic hypertrophy. Continue tamsulosin. Improved voiding with resolution of constipation and reduced need for opiate. Still with incontinence at night. Initiate timed voiding during the day beginning . * Constipation: continue bowel program. * Bipolar disorder. Continue quetiapine 200 mg q.h.s., oxcarbazepine 1200 mg daily and 600 mg q.h.s., aripiprazole 40 mg daily and lorazepam, but will reduce lorazepam form 2 mg QHS to 1 mg QHS due to somnolence noted morning of . Continue PRN alprazolam. * Likely osteoporosis with history of prior fractures and current fracture. Continue vitamin D replacement. Advise bone density testing after his discharge. * Obstructive sleep apnea, intolerant of CPAP. Oxygen at night will be used and he will be monitored for any complications. * Chronic lymphocytic leukemia is managed per Oncology. * Tongue coating resolved. will not be able to care for him at home, due to level of care needed for mobility, ADLs and cognition. Plan for SNF discharge when bed is available. Extensive conversation with Malgorzata today 10/15/16 re goals of care. She reports that he would not want his life prolonged with his current level of debility and cognitive impairment. Per her request, will change code status to DNR. Discussed likely end of life events, including e.g. decision re antibiotics if he were to have pneumonia that could bring the end of his life. Advised hospice consult once he is done with rehabilitation at SNF. 10/15/16 18:43 Subjective: No complaints. Had IVIG infusion today and returned this afternoon. Tolerated well. Objective: Vital Signs Temp Pulse Resp BP Pulse Ox 37.1 C 62 16 140/80 H 92 10/15/16 11:43 10/15/16 11:43 10/15/16 11:43 10/15/16 11:43 10/15/16 11:43 Laboratory Results 10/15/16 06:00 10/15/16 06:00 10/14/16 10/15/16 10/16/16 05:59 05:59 05:59 Intake Total 1510 560 Output Total 400 1408 650 Balance -400 102 -90 Physical Exam - Physical Exam General Appearance: WD/WN, alert, no apparent distress Respiratory: normal breath sounds, No crackles, No rhonchi, No wheezing Cardiac/Chest: regular rate, rhythm, No edema Skin: normal color, warm/dry Neuro/Psych: alert, normal mood/affect ICD10 Worksheet Patient Problems: Problems Problem Status Diagnosed CLL (chronic lymphocytic leukemia) Acute Hip fracture, left Acute Hypoxemia Acute
[2016-10-15] MEDS: ASPIRIN 81 MG CHEWABLE TAB PO SCH (20:43)
[2016-10-15] MEDS: QUEtiapine FUMARATE 100 MG TAB PO SCH (20:43)
[2016-10-15] MEDS: TAMSULOSIN HCL 0.4 MG CAP PO SCH (20:43)
[2016-10-15] MEDS: LORazepam 1 MG TAB PO SCH (20:43)
[2016-10-15] MEDS: CHOLECALCIFEROL VIT D3 1,000 UNITS TAB PO SCH (20:44)
[2016-10-16] MEDS: IPRATROPIUM/ALBUTEROL 3 ML DEYVIAL IH SCH ×4 (01:05→17:56)
[2016-10-16] MEDS: ACETAMINOPHEN 500 MG TAB PO SCH ×3 (05:47→22:31)
[2016-10-16] MEDS: ARIPiprazole 10 MG TAB PO SCH (09:33)
[2016-10-16] MEDS: amLODIPine BESYLATE 5 MG TAB PO SCH (09:34)
[2016-10-16] MEDS: FUROSEMIDE 20 MG TAB PO SCH (09:35)
[2016-10-16] MEDS: PROPRANOLOL SR 60 MG CAP PO SCH (09:35)
[2016-10-16] MEDS: OXcarbazepine 300 MG TAB PO SCH ×2 (09:36→19:42)
[2016-10-16] MEDS: LISINOPRIL 20 MG TAB PO SCH (09:37)
[2016-10-16] MEDS: valACYclovir 500 MG TAB PO SCH (09:37)
[2016-10-16] MEDS: NYSTATIN 15 GM CR TUBE TP SCH ×2 (09:38→19:43)
[2016-10-16] MEDS: CIPROFLOXACIN 250 MG TAB PO SCH ×2 (09:40→19:41)
[2016-10-16] MEDS: POLYETHYLENE GLYCOL 3350 17 GM PKT PO SCH (09:46)
[2016-10-16] MEDS: ENOXAPARIN 40 MG/0.4 ML SYR SC SCH (09:47)
--- NOTE | 2016-10-16 10:44 | SOAPPROG ---
SOAP Progress Note Assessment/Plan: Assessment: * Hip fracture following a fall at home, status post ORIF 09/27/16 with debility. Initial FIM 44 on 10/07/16; gain to 55 as of 10/13/16. Ambulating to bathroom with nursing; easier to manage than wheelchair transfer in bathroom. Motor planning deficit; inconsistent mobility, inconsistent performance with ADLs. Continue PT & OT to optimize his mobility and functional status regarding ADLs. Goal to reduce burden of care to 1 person assist. * Dysphagia noted in the hospital, on a dysphagia 2 diet, thin liquids. Per SUPERINTENDENT COLLIERY , he's unwilling to trial less soft food texture. * Cognitive impairment with prominent memory loss and confabulation. Seems brighter today 10/16/16. SUPERINTENDENT COLLIERY reports SLUMS 04/15 in hospital. Continue attempts at cognitive rehabilitation. No new CVA on MRI 10/11/16; obtained per 's request. Mental status +/- improved with decrease in lorazepam from 2 mg QHS to 1 mg QHS on 10/04/16. * UTI. Urine culture growing Klebsiella, sensitive to levofloxacin. Confirmed Ciprofloxacin sensitivity with lab. Continue ciprofloxacin 7 days total, through . May have improved mental status with treatment. * Hypoxia: CHF possible per CXR and indeterminate BNP level. Oxygenation improved with furosemide 20 mg QD. Renal function unchanged and BNP improved on labs 10/15/16. * Anemia, due to chronic lymphocytic leukemia. Improved with h/h 8.4/27.9 on , compared to 7/7 & 25.3 on 10/03/16; 8.9 on 10/10/16. Recheck Aimee 10/15. * SUKH: related to CHF? Infection? Post-obstructive (but PVRs no longer significantly elevated)? Improved on labs 10/12/16 with creatinine down to 1.2 from 1.3. * HTN: D/C'd amlodipine 10 mg when furosemide was started; BP increasing; resumed 5 mg QD starting 10/16/16. Continue lisinopril 20 mg QD and propranolol 60 mg QD. Continue to monitor. * Hypogammaglobulinemia: received IVIG on 10/15/2016. Continue Q 3 week dosing. Chronic stable issues: * Benign prostatic hypertrophy. Continue tamsulosin. Improved voiding with resolution of constipation and reduced need for opiate. Still with incontinence at night. Initiate timed voiding during the day beginning . * Constipation: continue bowel program. * Bipolar disorder. Continue quetiapine 200 mg q.h.s., oxcarbazepine 1200 mg daily and 600 mg q.h.s., aripiprazole 40 mg daily and lorazepam, but will reduce lorazepam form 2 mg QHS to 1 mg QHS due to somnolence noted morning of . Continue PRN alprazolam. * Likely osteoporosis with history of prior fractures and current fracture. Continue vitamin D replacement. Advise bone density testing after his discharge. * Obstructive sleep apnea, intolerant of CPAP. Oxygen at night will be used and he will be monitored for any complications. * Chronic lymphocytic leukemia is managed per Oncology. * Tongue coating resolved. will not be able to care for him at home, due to level of care needed for mobility, ADLs and cognition. Plan for SNF discharge when bed is available. Extensive conversation with Malgorzata 10/15/16 re goals of care. She reports that he would not want his life prolonged with his current level of debility and cognitive impairment. Per her request, will change code status to DNR. Discussed likely end of life events, including e.g. decision re antibiotics if he were to have pneumonia that could bring the end of his life. Advised hospice consult once he is done with rehabilitation at SNF. 10/16/16 10:45 Subjective: No complaints. Doesn't think he slept very well. Had IVIG infusion yesterday and didn't like spending the day at the cancer center.. No cough/dyspnea, f/c, n/v/c/d, dysuria. Objective: Vital Signs Temp Pulse Resp BP Pulse Ox 36.8 C 67 18 135/66 H 98 10/16/16 06:48 10/16/16 06:48 10/16/16 06:48 10/16/16 06:48 10/16/16 06:48 Laboratory Results 10/15/16 06:00 10/15/16 06:00 10/15/16 10/16/16 10/17/16 05:59 05:59 05:59 Intake Total 1510 1120 Output Total 1408 1500 Balance 102 -380 Physical Exam - Physical Exam General Appearance: WD/WN, alert, no apparent distress Respiratory: normal breath sounds, No crackles, No wheezing Cardiac/Chest: regular rate, rhythm, No edema Skin: normal color, warm/dry Neuro/Psych: alert, normal mood/affect ICD10 Worksheet Patient Problems: Problems Problem Status Diagnosed CLL (chronic lymphocytic leukemia) Acute Hip fracture, left Acute Hypoxemia Acute
[2016-10-16] MEDS: QUEtiapine FUMARATE 100 MG TAB PO SCH (19:40)
[2016-10-16] MEDS: TAMSULOSIN HCL 0.4 MG CAP PO SCH (19:40)
[2016-10-16] MEDS: CHOLECALCIFEROL VIT D3 1,000 UNITS TAB PO SCH (19:40)
[2016-10-16] MEDS: LORazepam 1 MG TAB PO SCH (19:41)
[2016-10-16] MEDS: ASPIRIN 81 MG CHEWABLE TAB PO SCH (19:41)
[2016-10-17] MEDS: IPRATROPIUM/ALBUTEROL 3 ML DEYVIAL IH SCH ×4 (00:06→18:03)
[2016-10-17] MEDS: ACETAMINOPHEN 500 MG TAB PO SCH ×3 (05:02→21:08)
[2016-10-17] MEDS: valACYclovir 500 MG TAB PO SCH (09:56)
[2016-10-17] MEDS: OXcarbazepine 300 MG TAB PO SCH ×2 (09:56→20:56)
[2016-10-17] MEDS: ARIPiprazole 10 MG TAB PO SCH (09:58)
[2016-10-17] MEDS: amLODIPine BESYLATE 5 MG TAB PO SCH (09:58)
[2016-10-17] MEDS: LISINOPRIL 20 MG TAB PO SCH (10:00)
[2016-10-17] MEDS: PROPRANOLOL SR 60 MG CAP PO SCH (10:00)
[2016-10-17] MEDS: FUROSEMIDE 20 MG TAB PO SCH (10:01)
[2016-10-17] MEDS: ENOXAPARIN 40 MG/0.4 ML SYR SC SCH (10:08)
[2016-10-17] MEDS: CIPROFLOXACIN 250 MG TAB PO SCH (10:09)
[2016-10-17] MEDS: POLYETHYLENE GLYCOL 3350 17 GM PKT PO SCH (10:12)
[2016-10-17] MEDS: NYSTATIN 15 GM CR TUBE TP SCH ×2 (10:12→21:01)
--- NOTE | 2016-10-17 11:56 | SOAPPROG ---
SOAP Progress Note Assessment/Plan: Assessment: 71 yo with Parkinson Dz, L hip ORIF s/p fracture 2/ fall * Hip fracture following a fall at home, status post ORIF 09/27/16 with debility. Ambulation improving, Motor planning deficit; inconsistent mobility , inconsistent performance with ADLs. Continue PT & OT to optimize his mobility and functional status regarding ADLs. Goal to reduce burden of care to 1 person assist. * Dysphagia noted in the hospital, on a dysphagia 2 diet, thin liquids. Per SAIL REPAIRER , he's unwilling to trial less soft food texture. * Cognitive impairment with prominent memory loss and confabulation. SAIL REPAIRER reports SLUMS 04/15 in hospital. Continue attempts at cognitive rehabilitation. No new CVA on MRI 10/11/16; obtained per 's request. Mental status +/- improved with decrease in lorazepam from 2 mg QHS to 1 mg QHS on 10/04/16. * UTI. Urine culture growing Klebsiella, sensitive to levofloxacin. Last day of ciprofloxacin (7 days total). Monitor sx/sx. * Hypoxia: CHF possible per CXR and indeterminate BNP level. Oxygenation improved with furosemide 20 mg QD. Renal function unchanged and BNP improved on labs 10/15/16. * Anemia, due to chronic lymphocytic leukemia. Improved with h/h 8.4/27.9 on , compared to 7/7 & 25.3 on 10/03/16; 8.9 on 10/10/16. Recheck Aimee 10/15. * SUKH: related to CHF? Infection? Post-obstructive (but PVRs no longer significantly elevated)? Improved on labs 10/12/16 with creatinine down to 1.2 from 1.3. * HTN: D/C'd amlodipine 10 mg when furosemide was started; BP increasing; resumed 5 mg QD starting 10/16/16. 142/82 this am. Continue lisinopril 20 mg QD and propranolol 60 mg QD. Continue to monitor, consider upping the amlodipine. * Hypogammaglobulinemia: received IVIG on 10/15/2016. Continue Q 3 week dosing. Chronic stable issues: * Benign prostatic hypertrophy. Continue tamsulosin. Improved voiding with resolution of constipation and reduced need for opiate. Still with incontinence at night. Initiate timed voiding during the day beginning . * Constipation: continue bowel program. * Bipolar disorder. Continue quetiapine 200 mg q.h.s., oxcarbazepine 1200 mg daily and 600 mg q.h.s., aripiprazole 40 mg daily and lorazepam, but will reduce lorazepam form 2 mg QHS to 1 mg QHS due to somnolence noted morning of . Continue PRN alprazolam. * Likely osteoporosis with history of prior fractures and current fracture. Continue vitamin D replacement. Advise bone density testing after his discharge. * Obstructive sleep apnea, intolerant of CPAP. Oxygen at night will be used and he will be monitored for any complications. * Chronic lymphocytic leukemia is managed per Oncology. * Tongue coating resolved. Plan: Cont Dr Velasquez rehab treatment plan. 10/17/16 11:56 Subjective: No new C/O's Spoke with patient and his , both pleased with his progress No significant pain C/O's Objective: Vital Signs Temp Pulse Resp BP Pulse Ox 36.8 C 65 18 143/82 H 92 10/17/16 06:28 10/17/16 06:28 10/17/16 06:28 10/17/16 06:28 10/17/16 08:23 Laboratory Results 10/15/16 06:00 10/15/16 06:00 10/16/16 10/17/16 10/18/16 05:59 05:59 05:59 Intake Total 1120 500 150 Output Total 1500 1050 Balance -380 -550 150 Physical Exam - Physical Exam General Appearance: alert, no apparent distress Neck: supple Respiratory: decreased breath sounds Cardiac/Chest: regular rate, rhythm Abdomen: soft Skin: normal color, warm/dry Extremities: No pedal edema, No calf tenderness Neuro/Psych: alert, motor weakness, cognition abnormalities, other (no acute changes) ICD10 Worksheet Patient Problems: Problems Problem Status Diagnosed CLL (chronic lymphocytic leukemia) Acute Hip fracture, left Acute Hypoxemia Acute
[2016-10-17] MEDS: LORazepam 1 MG TAB PO SCH (20:55)
[2016-10-17] MEDS: QUEtiapine FUMARATE 100 MG TAB PO SCH (20:55)
[2016-10-17] MEDS: CHOLECALCIFEROL VIT D3 1,000 UNITS TAB PO SCH (20:55)
[2016-10-17] MEDS: ASPIRIN 81 MG CHEWABLE TAB PO SCH (20:55)
[2016-10-17] MEDS: TAMSULOSIN HCL 0.4 MG CAP PO SCH (21:08)
[2016-10-18] MEDS: IPRATROPIUM/ALBUTEROL 3 ML DEYVIAL IH SCH ×5 (00:32→23:55)
[2016-10-18] MEDS: ACETAMINOPHEN 500 MG TAB PO SCH ×3 (05:19→20:47)
[2016-10-18] MEDS: ARIPiprazole 10 MG TAB PO SCH (08:24)
[2016-10-18] MEDS: valACYclovir 500 MG TAB PO SCH (08:26)
[2016-10-18] MEDS: OXcarbazepine 300 MG TAB PO SCH ×2 (08:26→20:48)
[2016-10-18] MEDS: LISINOPRIL 20 MG TAB PO SCH (08:26)
[2016-10-18] MEDS: FUROSEMIDE 20 MG TAB PO SCH (08:26)
[2016-10-18] MEDS: PROPRANOLOL SR 60 MG CAP PO SCH (08:26)
[2016-10-18] MEDS: amLODIPine BESYLATE 5 MG TAB PO SCH (08:27)
[2016-10-18] MEDS: ENOXAPARIN 40 MG/0.4 ML SYR SC SCH (08:31)
[2016-10-18] MEDS: POLYETHYLENE GLYCOL 3350 17 GM PKT PO SCH (08:31)
[2016-10-18] MEDS: NYSTATIN 15 GM CR TUBE TP SCH ×2 (08:33→20:48)
[2016-10-18] MEDS: oxyCODONE IR 5 MG TAB PO PRN (11:09)
--- NOTE | 2016-10-18 11:21 | SOAPPROG ---
SOAP Progress Note Assessment/Plan: Assessment: 71 yo with Parkinson Dz, L hip ORIF s/p fracture 2/ fall * Hip fracture following a fall at home, status post ORIF 09/27/16 with debility. Ambulation improving, Motor planning deficit; inconsistent mobility , inconsistent performance with ADLs. Continue PT & OT to optimize his mobility and functional status regarding ADLs. Goal to reduce burden of care to 1 person assist. * Pain L groin/thigh: Pt is on anti-coagulants, mobility increasing in room and with therapies. Pain decreased with meds. and better when he ambulates. Cont to monitor * Dysphagia noted in the hospital, on a dysphagia 2 diet, thin liquids. Per CLASSICS PROFESSOR , he's unwilling to trial less soft food texture. * Cognitive impairment with prominent memory loss and confabulation. CLASSICS PROFESSOR reports SLUMS 04/15 in hospital. Continue attempts at cognitive rehabilitation. No new CVA on MRI 10/11/16; obtained per 's request. Mental status +/- improved with decrease in lorazepam from 2 mg QHS to 1 mg QHS on 10/04/16. * UTI. Urine culture growing Klebsiella, sensitive to levofloxacin. Last day of ciprofloxacin (7 days total). Monitor sx/sx. * Hypoxia: CHF possible per CXR and indeterminate BNP level. Oxygenation improved with furosemide 20 mg QD. Renal function unchanged and BNP improved on labs 10/15/16. * Anemia, due to chronic lymphocytic leukemia. Improved with h/h 8.4/27.9 on , compared to 7/7 & 25.3 on 10/03/16; 8.9 on 10/10/16. Recheck Aimee 10/15. * SUKH: related to CHF? Infection? Post-obstructive (but PVRs no longer significantly elevated)? Improved on labs 10/12/16 with creatinine down to 1.2 from 1.3. * HTN: D/C'd amlodipine 10 mg when furosemide was started; BP increasing; resumed 5 mg QD starting 10/16/16. 142/82 this am. Continue lisinopril 20 mg QD and propranolol 60 mg QD. Continue to monitor, consider upping the amlodipine. * Hypogammaglobulinemia: received IVIG on 10/15/2016. Continue Q 3 week dosing. Chronic stable issues: * Benign prostatic hypertrophy. Continue tamsulosin. Improved voiding with resolution of constipation and reduced need for opiate. Still with incontinence at night. Initiate timed voiding during the day beginning . * Constipation: continue bowel program. * Bipolar disorder. Continue quetiapine 200 mg q.h.s., oxcarbazepine 1200 mg daily and 600 mg q.h.s., aripiprazole 40 mg daily and lorazepam, but will reduce lorazepam form 2 mg QHS to 1 mg QHS due to somnolence noted morning of . Continue PRN alprazolam. * Likely osteoporosis with history of prior fractures and current fracture. Continue vitamin D replacement. Advise bone density testing after his discharge. * Obstructive sleep apnea, intolerant of CPAP. Oxygen at night will be used and he will be monitored for any complications. * Chronic lymphocytic leukemia is managed per Oncology. * Tongue coating resolved. Plan: Cont Dr Velasquez rehab treatment plan. 10/18/16 11:11 Subjective: In good spirits Cooperative Pleasantly confused No F/C/CP/SOB/N/V/D/C Objective: Vital Signs Temp Pulse Resp BP Pulse Ox 37.0 C 74 17 142/74 H 93 10/18/16 06:28 10/18/16 06:28 10/18/16 06:28 10/18/16 06:28 10/18/16 06:28 Laboratory Results 10/15/16 06:00 10/15/16 06:00 10/17/16 10/18/16 10/19/16 05:59 05:59 05:59 Intake Total 500 450 236 Output Total 1050 850 Balance -550 -400 236 Physical Exam - Physical Exam General Appearance: alert, no apparent distress Neck: supple Respiratory: lungs clear Cardiac/Chest: regular rate, rhythm Skin: normal color, warm/dry Extremities: swelling (L post operative hip), No pedal edema, No calf tenderness , No Jennifer's sign Neuro/Psych: alert, normal mood/affect, motor weakness, cognition abnormalities , other (no acute changes) ICD10 Worksheet Patient Problems: Problems Problem Status Diagnosed CLL (chronic lymphocytic leukemia) Acute Hip fracture, left Acute Hypoxemia Acute
[2016-10-18] MEDS: QUEtiapine FUMARATE 100 MG TAB PO SCH (20:47)
[2016-10-18] MEDS: LORazepam 1 MG TAB PO SCH (20:47)
[2016-10-18] MEDS: TAMSULOSIN HCL 0.4 MG CAP PO SCH (20:47)
[2016-10-18] MEDS: ASPIRIN 81 MG CHEWABLE TAB PO SCH (20:48)
[2016-10-18] MEDS: CHOLECALCIFEROL VIT D3 1,000 UNITS TAB PO SCH (20:48)
[2016-10-19] MEDS: IPRATROPIUM/ALBUTEROL 3 ML DEYVIAL IH SCH ×4 (05:51→23:04)
[2016-10-19] MEDS: ACETAMINOPHEN 500 MG TAB PO SCH ×3 (05:51→21:31)
[2016-10-19] MEDS: ENOXAPARIN 40 MG/0.4 ML SYR SC SCH (09:31)
[2016-10-19] MEDS: PROPRANOLOL SR 60 MG CAP PO SCH (09:31)
[2016-10-19] MEDS: OXcarbazepine 300 MG TAB PO SCH ×2 (09:32→21:31)
[2016-10-19] MEDS: ARIPiprazole 10 MG TAB PO SCH (09:32)
[2016-10-19] MEDS: valACYclovir 500 MG TAB PO SCH (09:33)
[2016-10-19] MEDS: amLODIPine BESYLATE 5 MG TAB PO SCH (09:33)
[2016-10-19] MEDS: LISINOPRIL 20 MG TAB PO SCH (09:33)
[2016-10-19] MEDS: FUROSEMIDE 20 MG TAB PO SCH (09:33)
[2016-10-19] MEDS: POLYETHYLENE GLYCOL 3350 17 GM PKT PO SCH (09:34)
[2016-10-19] MEDS: NYSTATIN 15 GM CR TUBE TP SCH ×2 (09:45→23:07)
--- NOTE | 2016-10-19 17:56 | SOAPPROG ---
SOAP Progress Note Assessment/Plan: Assessment: * Hip fracture following a fall at home, status post ORIF 09/27/16 with debility. Initial FIM 44 on 10/07/16; gain to 55 as of 10/13/16. Ambulating to bathroom with nursing; easier to manage than wheelchair transfer in bathroom. Walked 45' X 2 today 10/19/16 with PT. Motor planning deficit; inconsistent mobility, inconsistent performance with ADLs. Continue PT & OT to optimize his mobility and functional status regarding ADLs. Goal to reduce burden of care to 1 person assist. * Dysphagia noted in the hospital, on a dysphagia 2 diet, thin liquids. Per CFO CONTROLLER , he's unwilling to trial less soft food texture. * Cognitive impairment with prominent memory loss and confabulation. Improving ? 10/16/16. CFO CONTROLLER reports SLUMS 04/15 in hospital. Continue attempts at cognitive rehabilitation. No new CVA on MRI 10/11/16; obtained per 's request. Mental status +/- improved with decrease in lorazepam from 2 mg QHS to 1 mg QHS on 10/04/16. * UTI. Urine culture growing Klebsiella, sensitive to levofloxacin. Confirmed Ciprofloxacin sensitivity with lab. Continue ciprofloxacin 7 days total, completed . May have improved mental status with treatment. * Hypoxia: CHF possible per CXR and indeterminate BNP level. Oxygenation improved with furosemide 20 mg QD. Renal function unchanged and BNP improved on labs 10/15/16. * Anemia, due to chronic lymphocytic leukemia. Improved with h/h 8.4/27.9 on , compared to 7/ & 25.3 on 10/03/16; 8.9 on 10/10/16. Stable at 8.5 on 10/15/16. * SUKH: related to CHF? Infection? Post-obstructive (but PVRs no longer significantly elevated)? Improved on labs 10/12/16 with creatinine down to 1.2 from 1.3. * HTN: D/C'd amlodipine 10 mg when furosemide was started; BP increasing; resumed 5 mg QD starting 10/16/16. Continue lisinopril 20 mg QD and propranolol 60 mg QD. Continue to monitor. * Hypogammaglobulinemia: received IVIG on 10/15/2016. Continue Q 3 week dosing. * DVT prophylaxis: has had reduced ,mobility. Continue enoxaparin through for 4 full weeks s/p hip fracture. Chronic stable issues: * Benign prostatic hypertrophy. Continue tamsulosin. Improved voiding with resolution of constipation and reduced need for opiate. Still with incontinence at night. Initiated timed voiding during the day beginning . * Constipation: continue bowel program. * Bipolar disorder. Continue quetiapine 200 mg q.h.s., oxcarbazepine 1200 mg daily and 600 mg q.h.s., aripiprazole 40 mg daily and lorazepam, but will reduce lorazepam form 2 mg QHS to 1 mg QHS due to somnolence noted morning of . Continue PRN alprazolam. * Likely osteoporosis with history of prior fractures and current fracture. Continue vitamin D replacement. Advise bone density testing after his discharge. * Obstructive sleep apnea, intolerant of CPAP. Oxygen at night will be used and he will be monitored for any complications. * Chronic lymphocytic leukemia is managed per Oncology. * Tongue coating resolved. will not be able to care for him at home, due to level of care needed for mobility, ADLs and cognition. Plan for SNF discharge when bed is available. Extensive conversation with Malgorzata 10/15/16 re goals of care. She reports that he would not want his life prolonged with his current level of debility and cognitive impairment. Per her request, will change code status to DNR. Discussed likely end of life events, including e.g. decision re antibiotics if he were to have pneumonia that could bring the end of his life. Advised hospice consult once he is done with rehabilitation at SNF. 10/19/16 18:00 Subjective: No complaints. Denies f/c, cough, dyspnea, n/v/c/d. Objective: Vital Signs Temp Pulse Resp BP Pulse Ox 36.7 C 72 16 140/77 H 92 10/19/16 06:41 10/19/16 09:31 10/19/16 06:41 10/19/16 09:33 10/19/16 06:41 Laboratory Results 10/15/16 06:00 10/15/16 06:00 10/18/16 10/19/16 10/20/16 05:59 05:59 05:59 Intake Total 877 566 3861 Output Total 850 450 625 Balance -400 -214 475 Physical Exam - Physical Exam General Appearance: WD/WN, alert, no apparent distress, obese Respiratory: normal breath sounds, No crackles, No rhonchi, No wheezing Cardiac/Chest: regular rate, rhythm, No edema Skin: normal color, warm/dry Neuro/Psych: alert, normal mood/affect, other (Observed in swenson arising from wheelchair and ambulating a few steps with much cueing per PT.) ICD10 Worksheet Patient Problems: Problems Problem Status Diagnosed CLL (chronic lymphocytic leukemia) Acute Hip fracture, left Acute Hypoxemia Acute
[2016-10-19] MEDS: CHOLECALCIFEROL VIT D3 1,000 UNITS TAB PO SCH (21:30)
[2016-10-19] MEDS: LORazepam 1 MG TAB PO SCH (21:31)
[2016-10-19] MEDS: TAMSULOSIN HCL 0.4 MG CAP PO SCH (21:32)
[2016-10-19] MEDS: QUEtiapine FUMARATE 100 MG TAB PO SCH (21:32)
[2016-10-19] MEDS: ASPIRIN 81 MG CHEWABLE TAB PO SCH (21:32)
[2016-10-20] MEDS: ACETAMINOPHEN 500 MG TAB PO SCH ×3 (05:27→20:23)
[2016-10-20] MEDS: IPRATROPIUM/ALBUTEROL 3 ML DEYVIAL IH SCH ×3 (05:38→18:42)
[2016-10-20] MEDS: ARIPiprazole 10 MG TAB PO SCH (09:32)
[2016-10-20] MEDS: LISINOPRIL 20 MG TAB PO SCH (09:33)
[2016-10-20] MEDS: OXcarbazepine 300 MG TAB PO SCH ×2 (09:33→20:20)
[2016-10-20] MEDS: valACYclovir 500 MG TAB PO SCH (09:33)
[2016-10-20] MEDS: POLYETHYLENE GLYCOL 3350 17 GM PKT PO SCH (09:33)
[2016-10-20] MEDS: FUROSEMIDE 20 MG TAB PO SCH (09:33)
[2016-10-20] MEDS: ENOXAPARIN 40 MG/0.4 ML SYR SC SCH (09:34)
[2016-10-20] MEDS: PROPRANOLOL SR 60 MG CAP PO SCH (09:34)
[2016-10-20] MEDS: amLODIPine BESYLATE 5 MG TAB PO SCH (09:34)
[2016-10-20] MEDS: NYSTATIN 15 GM CR TUBE TP SCH ×2 (09:35→20:33)
[2016-10-20] MEDS: SENNOSIDES 1 TAB PO PRN (10:20)
--- NOTE | 2016-10-20 11:14 | SOAPPROG ---
SOAP Progress Note Assessment/Plan: Assessment: * Left hip fracture following a fall at home, status post ORIF 09/27/16 with debility. Initial FIM 44 on 10/07/16; gain to 50 as of 10/13/16; gain to 61 as of 10/20/16. Has advanced to 1-person transfer. Walked 45' X 2 on 10/19/16 with PT , limited by fatigue. Continue PT & OT to optimize his mobility and functional status regarding ADLs. Goal to reduce burden of care to 1 person assist. * Dysphagia noted in the hospital, advanced to regular texture. * Cognitive impairment with prominent memory loss and confabulation. Better alertness noted since 10/16/16 but otherwise cognitive impairment is unchanged. COLOR MAKER DYER reports SLUMS 04/15 in hospital. Continue attempts at cognitive rehabilitation. No new CVA on MRI 10/11/16; obtained per 's request. Mental status +/- improved with decrease in lorazepam from 2 mg QHS to 1 mg QHS on 10/04/16. * UTI. Urine culture growing Klebsiella, sensitive to levofloxacin. Confirmed Ciprofloxacin sensitivity with lab. Continued ciprofloxacin 7 days total, completed . May have improved mental status with treatment. * Hypoxia: CHF possible per CXR and indeterminate BNP level. Oxygenation improved with furosemide 20 mg QD. Renal function unchanged and BNP improved on labs 10/15/16. * Anemia, due to chronic lymphocytic leukemia. Improved with h/h 8.4/27.9 on , compared to 7/7 & 25.3 on 10/03/16; 8.9 on 10/10/16. Stable at 8.5 on 10/15/16. * SUKH: related to CHF? Infection? Post-obstructive (but PVRs no longer significantly elevated)? Improved on labs 10/12/16 with creatinine down to 1.2 from 1.3. * HTN: D/C'd amlodipine 10 mg when furosemide was started; BP increasing; resumed 5 mg QD starting 10/16/16. Continue lisinopril 20 mg QD and propranolol 60 mg QD. Continue to monitor. * Hypogammaglobulinemia: received IVIG on 10/15/2016. Continue Q 3 week dosing. * DVT prophylaxis: has had reduced ,mobility. Continue enoxaparin through for 4 full weeks s/p hip fracture. Chronic stable issues: * Benign prostatic hypertrophy. Continue tamsulosin. Improved voiding with resolution of constipation and reduced need for opiate. Still with incontinence at night. Initiated timed voiding during the day beginning . * Constipation: continue bowel program. * Bipolar disorder. Continue quetiapine 200 mg q.h.s., oxcarbazepine 1200 mg daily and 600 mg q.h.s., aripiprazole 40 mg daily and lorazepam, but will reduce lorazepam form 2 mg QHS to 1 mg QHS due to somnolence noted morning of . Continue PRN alprazolam. * Likely osteoporosis with history of prior fractures and current fracture. Continue vitamin D replacement. Advise bone density testing after his discharge. * Obstructive sleep apnea, intolerant of CPAP. Oxygen at night will be used and he will be monitored for any complications. * Chronic lymphocytic leukemia is managed per Oncology. * Tongue coating resolved. Extensive conversation with Malgorzata 10/15/16 re goals of care. She reports that he would not want his life prolonged with his current level of debility and cognitive impairment. Per her request, will change code status to DNR. Discussed likely end of life events, including e.g. decision re antibiotics if he were to have pneumonia that could bring the end of his life. Advised hospice consult once he is done with rehabilitation at SNF. Attended staffing, 15 min. D/W case mgmt, nurse,, PT, OT, COLOR MAKER DYER. Improving towards 1-person assist level, but will not be able to care for him at home , due to level of care needed for mobility, ADLs and cognition. Plan for SNF discharge when bed is available. 10/20/16 12:45 Subjective: C/O occasional pains L thigh, not interfering with weightbearing or ambulating. Had small bowel movement today but still feels constipated. No f/c, cough, dyspnea, n/v, dysuria. Objective: Vital Signs Temp Pulse Resp BP Pulse Ox 36.6 C 73 18 108/52 L 96 10/20/16 06:05 10/20/16 09:34 10/20/16 06:05 10/20/16 09:34 10/20/16 06:05 Laboratory Results 10/15/16 06:00 10/15/16 06:00 10/19/16 10/20/16 10/21/16 05:59 05:59 05:59 Intake Total 236 1720 622 Output Total 450 875 275 Balance -214 845 347 - Time Spent With Patient Time Spent With Patient: Greater than 35 minutes floor time today, including more than 50% of time in coordination of care during staffing meeting, and counseling patient and . Physical Exam - Physical Exam General Appearance: WD/WN, alert, no apparent distress, obese Respiratory: No respiratory distress, No accessory muscle use Cardiac/Chest: No edema Skin: normal color, warm/dry Neuro/Psych: no motor/sensory deficits, alert, normal mood/affect ICD10 Worksheet Patient Problems: Problems Problem Status Diagnosed CLL (chronic lymphocytic leukemia) Acute Hip fracture, left Acute Hypoxemia Acute
[2016-10-20] MEDS: QUEtiapine FUMARATE 100 MG TAB PO SCH (20:20)
[2016-10-20] MEDS: LORazepam 1 MG TAB PO SCH (20:21)
[2016-10-20] MEDS: CHOLECALCIFEROL VIT D3 1,000 UNITS TAB PO SCH (20:22)
[2016-10-20] MEDS: ASPIRIN 81 MG CHEWABLE TAB PO SCH (20:23)
[2016-10-20] MEDS: TAMSULOSIN HCL 0.4 MG CAP PO SCH (20:32)
[2016-10-21] MEDS: IPRATROPIUM/ALBUTEROL 3 ML DEYVIAL IH SCH ×4 (00:47→18:01)
[2016-10-21] MEDS: ACETAMINOPHEN 500 MG TAB PO SCH ×3 (05:08→22:06)
[2016-10-21] MEDS: POLYETHYLENE GLYCOL 3350 17 GM PKT PO SCH (08:47)
[2016-10-21] MEDS: valACYclovir 500 MG TAB PO SCH (08:49)
[2016-10-21] MEDS: FUROSEMIDE 20 MG TAB PO SCH (08:49)
[2016-10-21] MEDS: LISINOPRIL 20 MG TAB PO SCH (08:49)
[2016-10-21] MEDS: OXcarbazepine 300 MG TAB PO SCH ×2 (08:49→22:07)
[2016-10-21] MEDS: ENOXAPARIN 40 MG/0.4 ML SYR SC SCH (08:49)
[2016-10-21] MEDS: ARIPiprazole 10 MG TAB PO SCH (08:49)
[2016-10-21] MEDS: PROPRANOLOL SR 60 MG CAP PO SCH (08:50)
[2016-10-21] MEDS: amLODIPine BESYLATE 5 MG TAB PO SCH (08:50)
[2016-10-21] MEDS: NYSTATIN 15 GM CR TUBE TP SCH ×2 (09:00→22:08)
[2016-10-21] MEDS: oxyCODONE IR 5 MG TAB PO PRN ×3 (09:54→22:06)
--- NOTE | 2016-10-21 14:45 | SOAPPROG ---
SOAP Progress Note Assessment/Plan: Assessment: * Left hip fracture following a fall at home, status post ORIF 09/27/16 with debility. Initial FIM 44 on 10/07/16; gain to 50 as of 10/13/16; gain to 61 as of 10/20/16. Has advanced to 1-person transfer. Walked 45' X 2 on 10/19/16 with PT , limited by fatigue. Continue PT & OT to optimize his mobility and functional status regarding ADLs. Goal to reduce burden of care to 1 person assist. * Dysphagia noted in the hospital, advanced to regular texture. * Cognitive impairment with prominent memory loss and confabulation. Better alertness noted since 10/16/16 but otherwise cognitive impairment is unchanged. TIER OVER reports SLUMS 04/15 in hospital. Continue attempts at cognitive rehabilitation. No new CVA on MRI 10/11/16; obtained per 's request. Mental status +/- improved with decrease in lorazepam from 2 mg QHS to 1 mg QHS on 10/04/16. * UTI. Urine culture growing Klebsiella, sensitive to levofloxacin. Confirmed Ciprofloxacin sensitivity with lab. Continued ciprofloxacin 7 days total, completed . May have improved mental status with treatment. * Hypoxia: CHF possible per CXR and indeterminate BNP level. Oxygenation improved with furosemide 20 mg QD. Renal function unchanged and BNP improved on labs 10/15/16. * Anemia, due to chronic lymphocytic leukemia. Improved with h/h 8.4/27.9 on , compared to 7/7 & 25.3 on 10/03/16; 8.9 on 10/10/16. Stable at 8.5 on 10/15/16. * SUKH: related to CHF? Infection? Post-obstructive (but PVRs no longer significantly elevated)? Improved on labs 10/12/16 with creatinine down to 1.2 from 1.3. * HTN: D/C'd amlodipine 10 mg when furosemide was started; BP increasing; resumed 5 mg QD starting 10/16/16. Continue lisinopril 20 mg QD and propranolol 60 mg QD. Continue to monitor. * Hypogammaglobulinemia: received IVIG on 10/15/2016. Continue Q 3 week dosing. * DVT prophylaxis: has had reduced ,mobility. Continue enoxaparin through for 4 full weeks s/p hip fracture. Chronic stable issues: * Benign prostatic hypertrophy. Continue tamsulosin. Improved voiding with resolution of constipation and reduced need for opiate. Still with incontinence at night. Initiated timed voiding during the day beginning . No longer incontinent. * Constipation: continue bowel program. * Bipolar disorder. Continue quetiapine 200 mg q.h.s., oxcarbazepine 1200 mg daily and 600 mg q.h.s., aripiprazole 40 mg daily and lorazepam, but will reduce lorazepam form 2 mg QHS to 1 mg QHS due to somnolence noted morning of . Continue PRN alprazolam. * Likely osteoporosis with history of prior fractures and current fracture. Continue vitamin D replacement. Advise bone density testing after his discharge. * Obstructive sleep apnea, intolerant of CPAP. Oxygen at night will be used and he will be monitored for any complications. * Chronic lymphocytic leukemia is managed per Oncology. * Tongue coating resolved. Extensive conversation with Malgorzata 10/15/16 re goals of care. She reports that he would not want his life prolonged with his current level of debility and cognitive impairment. Per her request, will change code status to DNR. Discussed likely end of life events, including e.g. decision re antibiotics if he were to have pneumonia that could bring the end of his life. Advised hospice consult once he is done with rehabilitation at SNF. Improving towards 1-person assist level, but will not be able to care for him at home, due to level of care needed for mobility, ADLs and cognition. Plan for SNF discharge when bed is available. 10/21/16 14:43 Subjective: Has some pain L thigh. Feels it when weightbearing. No f/c, cough/dyspnea, n/v /c/d. Objective: Vital Signs Temp Pulse Resp BP Pulse Ox 36.1 C 62 20 140/89 H 93 10/21/16 08:00 10/21/16 08:50 10/21/16 08:00 10/21/16 08:50 10/21/16 08:00 Laboratory Results 10/15/16 06:00 10/15/16 06:00 10/20/16 10/21/16 10/22/16 05:59 05:59 05:59 Intake Total 1720 1732 1200 Output Total 875 5 750 Balance 845 -293 450 Physical Exam - Physical Exam General Appearance: WD/WN, alert, no apparent distress, obese Respiratory: normal breath sounds, No crackles, No rhonchi, No wheezing Cardiac/Chest: regular rate, rhythm, No edema Skin: normal color, warm/dry Neuro/Psych: alert, normal mood/affect, abnormal gait (Very slow, PT following with wheelchair, using FWW, narrow base, short steps.) ICD10 Worksheet Patient Problems: Problems Problem Status Diagnosed CLL (chronic lymphocytic leukemia) Acute Hip fracture, left Acute Hypoxemia Acute
[2016-10-21] MEDS: LORazepam 1 MG TAB PO SCH (22:06)
[2016-10-21] MEDS: QUEtiapine FUMARATE 100 MG TAB PO SCH (22:07)
[2016-10-21] MEDS: TAMSULOSIN HCL 0.4 MG CAP PO SCH (22:07)
[2016-10-21] MEDS: ASPIRIN 81 MG CHEWABLE TAB PO SCH (22:07)
[2016-10-21] MEDS: CHOLECALCIFEROL VIT D3 1,000 UNITS TAB PO SCH (22:07)
[2016-10-22] MEDS: IPRATROPIUM/ALBUTEROL 3 ML DEYVIAL IH SCH ×5 (00:12→22:13)
[2016-10-22] MEDS: ACETAMINOPHEN 500 MG TAB PO SCH ×3 (05:48→20:08)
[2016-10-22] MEDS: POLYETHYLENE GLYCOL 3350 17 GM PKT PO SCH (08:18)
[2016-10-22] MEDS: ENOXAPARIN 40 MG/0.4 ML SYR SC SCH (08:19)
[2016-10-22] MEDS: ARIPiprazole 10 MG TAB PO SCH (08:19)
[2016-10-22] MEDS: PROPRANOLOL SR 60 MG CAP PO SCH (08:19)
[2016-10-22] MEDS: FUROSEMIDE 20 MG TAB PO SCH (08:20)
[2016-10-22] MEDS: LISINOPRIL 20 MG TAB PO SCH (08:20)
[2016-10-22] MEDS: valACYclovir 500 MG TAB PO SCH (08:20)
[2016-10-22] MEDS: OXcarbazepine 300 MG TAB PO SCH ×2 (08:20→20:06)
[2016-10-22] MEDS: amLODIPine BESYLATE 5 MG TAB PO SCH (08:20)
[2016-10-22] MEDS: NYSTATIN 15 GM CR TUBE TP SCH ×2 (08:34→20:07)
--- NOTE | 2016-10-22 12:59 | SOAPPROG ---
SOAP Progress Note Assessment/Plan: Assessment: * Left hip fracture following a fall at home, status post ORIF 09/27/16 with debility. Initial FIM 44 on 10/07/16; gain to 50 as of 10/13/16; gain to 61 as of 10/20/16. Has advanced to 1-person transfer. Walked 45' X 2 on 10/19/16 with PT , limited by fatigue. Continue PT & OT to optimize his mobility and functional status regarding ADLs. Goal to reduce burden of care to 1 person assist. * Dysphagia noted in the hospital, advanced to regular texture. * Cognitive impairment with prominent memory loss and confabulation. Better alertness noted since 10/16/16 but otherwise cognitive impairment is unchanged. EXECUTIVE ADMINISTRATIVE ASST reports SLUMS 04/15 in hospital. Continue attempts at cognitive rehabilitation. No new CVA on MRI 10/11/16; obtained per 's request. Mental status +/- improved with decrease in lorazepam from 2 mg QHS to 1 mg QHS on 10/04/16. * UTI. Urine culture growing Klebsiella, sensitive to levofloxacin. Confirmed Ciprofloxacin sensitivity with lab. Continued ciprofloxacin 7 days total, completed . May have improved mental status with treatment. * Hypoxia: CHF possible per CXR and indeterminate BNP level. Oxygenation improved with furosemide 20 mg QD. Renal function unchanged and BNP improved on labs 10/15/16. * Anemia, due to chronic lymphocytic leukemia. Improved with h/h 8.4/27.9 on , compared to 7/7 & 25.3 on 10/03/16; 8.9 on 10/10/16. Stable at 8.5 on 10/15/16. Recheck CBC in AM 10/23/16. * SUKH: related to CHF? Infection? Post-obstructive (but PVRs no longer significantly elevated)? Improved on labs 10/12/16 with creatinine down to 1.2 from 1.3. Recheck BMP AM 10/23/16. * HTN: D/C'd amlodipine 10 mg when furosemide was started; BP increasing; resumed 5 mg QD starting 10/16/16. Continue lisinopril 20 mg QD and propranolol 60 mg QD. Continue to monitor. * Hypogammaglobulinemia: received IVIG on 10/15/2016. Continue Q 3 week dosing. * DVT prophylaxis: has had reduced ,mobility. Continue enoxaparin through for 4 full weeks s/p hip fracture. Chronic stable issues: * Benign prostatic hypertrophy. Continue tamsulosin. Improved voiding with resolution of constipation and reduced need for opiate. Still with incontinence at night. Initiated timed voiding during the day beginning . No longer incontinent. * Constipation: continue bowel program. * Bipolar disorder. Continue quetiapine 200 mg q.h.s., oxcarbazepine 1200 mg daily and 600 mg q.h.s., aripiprazole 40 mg daily and lorazepam, but will reduce lorazepam form 2 mg QHS to 1 mg QHS due to somnolence noted morning of . Continue PRN alprazolam. * Likely osteoporosis with history of prior fractures and current fracture. Continue vitamin D replacement. Advise bone density testing after his discharge. * Obstructive sleep apnea, intolerant of CPAP. Oxygen at night will be used and he will be monitored for any complications. * Chronic lymphocytic leukemia is managed per Oncology. * Tongue coating resolved. Extensive conversation with Malgorzata 10/15/16 re goals of care. She reports that he would not want his life prolonged with his current level of debility and cognitive impairment. Per her request, will change code status to DNR. Discussed likely end of life events, including e.g. decision re antibiotics if he were to have pneumonia that could bring the end of his life. Advised hospice consult once he is done with rehabilitation at SNF. Improving towards 1-person assist level, but will not be able to care for him at home, due to level of care needed for mobility, ADLs and cognition. Plan for SNF discharge 10/25/16. 10/22/16 12:56 Subjective: No complaints. Sleeping well. Still with some L hip pain; occasional oxycodone is effective. No f/c, dyspnea, cough, n/v/c/d. Objective: Vital Signs Temp Pulse Resp BP Pulse Ox 36.5 C 79 16 147/71 H 93 10/22/16 05:57 10/22/16 08:19 10/22/16 05:57 10/22/16 08:20 10/22/16 05:57 Laboratory Results 10/15/16 06:00 10/15/16 06:00 01/03/0210/22/16 10/23/16 05:59 05:59 05:59 Intake Total 1731 1170 870 Output Total 2024 1050 875 Balance -293 630 -5 Physical Exam - Physical Exam General Appearance: WD/WN, alert, no apparent distress, obese Respiratory: No respiratory distress, No accessory muscle use Skin: normal color, warm/dry Neuro/Psych: alert, normal mood/affect, abnormal credentialer II-XII (Slow, with FWW and PT following with wheelchair) ICD10 Worksheet Patient Problems: Problems Problem Status Diagnosed CLL (chronic lymphocytic leukemia) Acute Hip fracture, left Acute Hypoxemia Acute
[2016-10-22] MEDS: oxyCODONE IR 5 MG TAB PO PRN ×2 (13:24→20:08)
[2016-10-22] MEDS: SENNOSIDES 1 TAB PO PRN (17:45)
[2016-10-22] MEDS: CHOLECALCIFEROL VIT D3 1,000 UNITS TAB PO SCH (20:07)
[2016-10-22] MEDS: QUEtiapine FUMARATE 100 MG TAB PO SCH (20:07)
[2016-10-22] MEDS: ASPIRIN 81 MG CHEWABLE TAB PO SCH (20:07)
[2016-10-22] MEDS: TAMSULOSIN HCL 0.4 MG CAP PO SCH (20:07)
[2016-10-22] MEDS: LORazepam 1 MG TAB PO SCH (20:07)
[2016-10-23] MEDS: ACETAMINOPHEN 500 MG TAB PO SCH ×3 (06:20→20:06)
[2016-10-23] MEDS: IPRATROPIUM/ALBUTEROL 3 ML DEYVIAL IH SCH ×3 (06:20→18:05)
[2016-10-23] MEDS: amLODIPine BESYLATE 5 MG TAB PO SCH (08:40)
[2016-10-23] MEDS: ARIPiprazole 10 MG TAB PO SCH (08:41)
[2016-10-23] MEDS: ENOXAPARIN 40 MG/0.4 ML SYR SC SCH (08:43)
[2016-10-23] MEDS: FUROSEMIDE 20 MG TAB PO SCH (08:44)
[2016-10-23] MEDS: NYSTATIN 15 GM CR TUBE TP SCH ×2 (08:44→20:06)
[2016-10-23] MEDS: LISINOPRIL 20 MG TAB PO SCH (08:44)
[2016-10-23] MEDS: OXcarbazepine 300 MG TAB PO SCH ×2 (08:45→20:06)
[2016-10-23] MEDS: oxyCODONE IR 5 MG TAB PO PRN (08:45)
[2016-10-23] MEDS: PROPRANOLOL SR 60 MG CAP PO SCH (08:45)
[2016-10-23] MEDS: POLYETHYLENE GLYCOL 3350 17 GM PKT PO SCH (08:45)
[2016-10-23] MEDS: SENNOSIDES 1 TAB PO PRN (08:46)
[2016-10-23] MEDS: valACYclovir 500 MG TAB PO SCH (08:46)
[2016-10-23 08:59] LABS: ABSOLUTE NRBC COUNT 0.22 10^3/uL (0-0.01); ADD DIFF? YES; ADD MORPH? YES; ADD SCAN? YES; ATYPICAL LYMPHOCYTE FLAG 50 (0-99); FRAGMENT RBC FLAG 20 (0-99); HEMATOCRIT 25.9 % (40.0-51.0); HEMOGLOBIN 7.3 g/dL (13.7-17.5); LEFT SHIFT FLG 30 (0-99); LIPEMIA HEMOLYSIS FLAG 70 (0-99); MEAN CELL HEMOGLOBIN 30.2 pg (27.9-34.1); MEAN PLATELET VOLUME 11.3 fL (8.7-11.7); NRBC-AUTO% 0.1 % (0.0-0.2); PLATELET CLUMPS FLAG 0 (0-99); PLATELET COUNT 138 10^3/uL (150-400); RED BLOOD CELL COUNT 2.42 10^6/uL (4.40-6.38)
[2016-10-23 09:08] LABS: MEAN CELL HEMOGLOBIN CONCENTR. 28.2 g/dL (32.4-36.7)
[2016-10-23 10:24] LABS: ELLIPTOCYTES 1+; MACROCYTES 2+; PLATELET ESTIMATE DECREASED (ADEQ); SCHISTOCYTES 1+; SMUDGE CELLS 1+
[2016-10-23 10:25] LABS: HOWELL-JOLLY BODIES 1+
--- NOTE | 2016-10-23 15:23 | SOAPPROG ---
SOAP Progress Note Assessment/Plan: * Left hip fracture following a fall at home, status post ORIF 09/27/16 with debility. Initial FIM 44 on 10/07/16; gain to 50 as of 10/13/16; gain to 61 as of 10/20/16. Has advanced to 1-person transfer. Walked 45' X 2 on 10/19/16 with PT , limited by fatigue. Continue PT & OT to optimize his mobility and functional status regarding ADLs. Goal to reduce burden of care to 1 person assist. * Dysphagia noted in the hospital, advanced to regular texture. * Cognitive impairment with prominent memory loss and confabulation. Better alertness noted since 10/16/16 but otherwise cognitive impairment is unchanged. HEDIS COORDINATOR reports SLUMS 04/15 in hospital. Continue attempts at cognitive rehabilitation. No new CVA on MRI 10/11/16; obtained per 's request. Mental status +/- improved with decrease in lorazepam from 2 mg QHS to 1 mg QHS on 10/04/16. * UTI. Urine culture growing Klebsiella, sensitive to levofloxacin. Confirmed Ciprofloxacin sensitivity with lab. Continued ciprofloxacin 7 days total, completed . May have improved mental status with treatment. * Hypoxia: CHF possible per CXR and indeterminate BNP level. Oxygenation improved with furosemide 20 mg QD. Renal function unchanged and BNP improved on labs 10/15/16. * Anemia, due to chronic lymphocytic leukemia. Improved with h/h 8.4/27.9 on , compared to 7/7 & 25.3 on 10/03/16; 8.9 on 10/10/16. Stable at 8.5 on 10/15/16. Recheck CBC with recurrent anemia to 7.3, d/w Oncology and agree with 1U pRBCs, Will get T+S tomorrow (will need new consent from /patient) * SUKH: related to CHF? Infection? Post-obstructive (but PVRs no longer significantly elevated)? Improved on labs 10/12/16 with creatinine down to 1.2 from 1.3. Recheck BMP AM 10/24/16. * HTN: D/C'd amlodipine 10 mg when furosemide was started; BP increasing; resumed 5 mg QD starting 10/16/16. Continue lisinopril 20 mg QD and propranolol 60 mg QD. Continue to monitor. * Hypogammaglobulinemia: received IVIG on 10/15/2016. Continue Q 3 week dosing. * DVT prophylaxis: has had reduced ,mobility. Continue enoxaparin through for 4 full weeks s/p hip fracture. Chronic stable issues: * Benign prostatic hypertrophy. Continue tamsulosin. Improved voiding with resolution of constipation and reduced need for opiate. Still with incontinence at night. Initiated timed voiding during the day beginning . No longer incontinent. * Constipation: continue bowel program. * Bipolar disorder. Continue quetiapine 200 mg q.h.s., oxcarbazepine 1200 mg daily and 600 mg q.h.s., aripiprazole 40 mg daily and lorazepam, but will reduce lorazepam form 2 mg QHS to 1 mg QHS due to somnolence noted morning of . Continue PRN alprazolam. * Likely osteoporosis with history of prior fractures and current fracture. Continue vitamin D replacement. Advise bone density testing after his discharge. * Obstructive sleep apnea, intolerant of CPAP. Oxygen at night will be used and he will be monitored for any complications. * Chronic lymphocytic leukemia is managed per Oncology. Some progression of WBC count off therapy, no change in mgmnt per Onc (except unit for anemia, as above) * Tongue coating resolved. Extensive conversation with Malgorzata 10/15/16 re goals of care. She reports that he would not want his life prolonged with his current level of debility and cognitive impairment. Per her request, will change code status to DNR. Discussed likely end of life events, including e.g. decision re antibiotics if he were to have pneumonia that could bring the end of his life. Advised hospice consult once he is done with rehabilitation at SNF. Improving towards 1-person assist level, but will not be able to care for him at home, due to level of care needed for mobility, ADLs and cognition. Plan for SNF discharge 10/25/16. 10/23/16 15:22 Subjective: No acute events. No complaints per patient. Pain well controlled. Denies lightheadedness or palpitations. Objective: Vital Signs Temp Pulse Resp BP Pulse Ox 36.7 C 68 16 142/70 H 95 10/23/16 06:30 10/23/16 08:45 10/23/16 06:30 10/23/16 08:45 10/23/16 06:30 Laboratory Results 10/23/16 06:30 10/15/16 06:00 10/22/16 10/23/16 10/24/16 05:59 05:59 05:59 Intake Total 1680 1110 1020 Output Total 1050 1875 1050 Balance 630 -765 -30 - Pending Discharge Pending Discharge Within 24 Hours: No Pending Discharge Within 48 Hours: Yes Pending Discharge Date: 10/25/16 Pending Discharge Time: 11:00 Physical Exam - Physical Exam General Appearance: alert, no apparent distress Neck: supple Respiratory: lungs clear, normal breath sounds Cardiac/Chest: regular rate, rhythm, No tachycardia Abdomen: non-tender, soft Skin: warm/dry Neuro/Psych: alert, normal mood/affect ICD10 Worksheet Patient Problems: Problems Problem Status Diagnosed CLL (chronic lymphocytic leukemia) Acute Hip fracture, left Acute Hypoxemia Acute
[2016-10-23] MEDS: ASPIRIN 81 MG CHEWABLE TAB PO SCH (20:05)
[2016-10-23] MEDS: TAMSULOSIN HCL 0.4 MG CAP PO SCH (20:05)
[2016-10-23] MEDS: CHOLECALCIFEROL VIT D3 1,000 UNITS TAB PO SCH (20:05)
[2016-10-23] MEDS: QUEtiapine FUMARATE 100 MG TAB PO SCH (20:06)
[2016-10-23] MEDS: LORazepam 1 MG TAB PO SCH (20:06)
[2016-10-24] MEDS: IPRATROPIUM/ALBUTEROL 3 ML DEYVIAL IH SCH ×5 (00:02→23:48)
[2016-10-24] MEDS: ACETAMINOPHEN 500 MG TAB PO SCH ×3 (05:17→22:01)
[2016-10-24] MEDS: ARIPiprazole 10 MG TAB PO SCH (08:43)
[2016-10-24] MEDS: ENOXAPARIN 40 MG/0.4 ML SYR SC SCH (08:43)
[2016-10-24] MEDS: amLODIPine BESYLATE 5 MG TAB PO SCH (08:43)
[2016-10-24] MEDS: OXcarbazepine 300 MG TAB PO SCH ×2 (08:44→20:40)
[2016-10-24] MEDS: FUROSEMIDE 20 MG TAB PO SCH (08:44)
[2016-10-24] MEDS: LISINOPRIL 20 MG TAB PO SCH (08:44)
[2016-10-24] MEDS: NYSTATIN 15 GM CR TUBE TP SCH ×2 (08:44→23:57)
[2016-10-24] MEDS: PROPRANOLOL SR 60 MG CAP PO SCH (08:45)
[2016-10-24] MEDS: POLYETHYLENE GLYCOL 3350 17 GM PKT PO SCH (08:45)
[2016-10-24] MEDS: valACYclovir 500 MG TAB PO SCH (08:45)
[2016-10-24 11:00] LABS: ANION GAP 11 mEq/L (8-16); CALCIUM 10.2 mg/dL (8.5-10.4); CARBON DIOXIDE 28 mEq/l (22-31); CHLORIDE 102 mEq/L (97-110); CREATININE 1.2 mg/dL (0.7-1.3); GLOMERULAR FILTRATION RATE > 60; GLUCOSE 83 mg/dL (70-100); POTASSIUM 4.5 mEq/L (3.5-5.2); SODIUM 141 mEq/L (134-144)
[2016-10-24 11:05] LABS: ABSOLUTE NRBC COUNT 0.22 10^3/uL (0-0.01); ADD DIFF? YES; ADD MORPH? YES; ADD SCAN? YES; ATYPICAL LYMPHOCYTE FLAG 0 (0-99); FRAGMENT RBC FLAG 20 (0-99); HEMATOCRIT 28.3 % (40.0-51.0); LEFT SHIFT FLG 30 (0-99); LIPEMIA HEMOLYSIS FLAG 70 (0-99); MEAN CELL HEMOGLOBIN 30.5 pg (27.9-34.1); NRBC-AUTO% 0.1 % (0.0-0.2); PLATELET CLUMPS FLAG 0 (0-99); PLATELET COUNT 133 10^3/uL (150-400); RED BLOOD CELL COUNT 2.62 10^6/uL (4.40-6.38)
[2016-10-24 11:15] LABS: MEAN CELL HEMOGLOBIN CONCENTR. 28.3 g/dL (32.4-36.7); RED CELL DISTRIBUTION WIDTH 20.2 % (11.5-15.2)
--- NOTE | 2016-10-24 12:27 | SOAPPROG ---
SOAP Progress Note Assessment/Plan: * Left hip fracture following a fall at home, status post ORIF 09/27/16 with debility. Initial FIM 44 on 10/07/16; gain to 50 as of 10/13/16; gain to 61 as of 10/20/16. Has advanced to 1-person transfer. Walked 45' X 2 on 10/19/16 with PT , limited by fatigue. Continue PT & OT to optimize his mobility and functional status regarding ADLs. Goal to reduce burden of care to 1 person assist. * Dysphagia noted in the hospital, advanced to regular texture. * Cognitive impairment with prominent memory loss and confabulation. Better alertness noted since 10/16/16 but otherwise cognitive impairment is unchanged. ROUTE SALESMAN AND DRIVER reports SLUMS 04/15 in hospital. Continue attempts at cognitive rehabilitation. No new CVA on MRI 10/11/16; obtained per 's request. Mental status +/- improved with decrease in lorazepam from 2 mg QHS to 1 mg QHS on 10/04/16. * UTI. Urine culture growing Klebsiella, sensitive to levofloxacin. Confirmed Ciprofloxacin sensitivity with lab. Continued ciprofloxacin 7 days total, completed . May have improved mental status with treatment. * Hypoxia: CHF possible per CXR and indeterminate BNP level. Oxygenation improved with furosemide 20 mg QD. Renal function unchanged and BNP improved on labs 10/15/16. * Anemia, due to chronic lymphocytic leukemia. Improved with h/h 8.4/27.9 on , compared to 7/7 & 25.3 on 10/03/16; 8.9 on 10/10/16. Stable at 8.5 on 10/15/16. Recheck CBC with recurrent anemia to 7.3, d/w Oncology would give 1U pRBCs, Recheck this a.m. is pending with T+S, consented pt. and * SUKH: related to CHF? Infection? Post-obstructive (but PVRs no longer significantly elevated)? Improved on labs 10/12/16 with creatinine down to 1.2 from 1.3. Recheck BMP stable at 1.2 * HTN: D/C'd amlodipine 10 mg when furosemide was started; BP increasing; resumed 5 mg QD starting 10/16/16. Continue lisinopril 20 mg QD and propranolol 60 mg QD. Continue to monitor. * Hypogammaglobulinemia: received IVIG on 10/15/2016. Continue Q 3 week dosing. * DVT prophylaxis: has had reduced ,mobility. Continue enoxaparin through for 4 full weeks s/p hip fracture. Chronic stable issues: * Benign prostatic hypertrophy. Continue tamsulosin. Improved voiding with resolution of constipation and reduced need for opiate. Still with incontinence at night. Initiated timed voiding during the day beginning . No longer incontinent. * Constipation: continue bowel program. * Bipolar disorder. Continue quetiapine 200 mg q.h.s., oxcarbazepine 1200 mg daily and 600 mg q.h.s., aripiprazole 40 mg daily and lorazepam, but will reduce lorazepam form 2 mg QHS to 1 mg QHS due to somnolence noted morning of . Continue PRN alprazolam. * Likely osteoporosis with history of prior fractures and current fracture. Continue vitamin D replacement. Advise bone density testing after his discharge. * Obstructive sleep apnea, intolerant of CPAP. Oxygen at night will be used and he will be monitored for any complications. * Chronic lymphocytic leukemia is managed per Oncology. Some progression of WBC count off therapy, no change in mgmnt per Onc (except for anemia, as above) * Tongue coating resolved. Extensive conversation with Malgorzata 10/15/16 re goals of care. She reports that he would not want his life prolonged with his current level of debility and cognitive impairment. Per her request, will change code status to DNR. Discussed likely end of life events, including e.g. decision re antibiotics if he were to have pneumonia that could bring the end of his life. Advised hospice consult once he is done with rehabilitation at SNF. Improving towards 1-person assist level, but will not be able to care for him at home, due to level of care needed for mobility, ADLs and cognition. Plan for SNF discharge 10/25/16. Subjective: No acute events. No complaints this a.m., denies lightheadedness or palpitations. Objective: Vital Signs Temp Pulse Resp BP Pulse Ox 36.6 C 72 16 139/72 H 93 10/24/16 05:50 10/24/16 05:50 10/24/16 05:50 10/24/16 08:43 10/24/16 05:50 Laboratory Results 10/24/16 05:45 10/23/16 10/24/16 10/25/16 05:59 05:59 05:59 Intake Total 1110 1200 Output Total 1875 1050 Balance -765 150 - Pending Discharge Pending Discharge Within 24 Hours: Yes Pending Discharge Within 48 Hours: Yes Pending Discharge Date: 10/25/16 Pending Discharge Time: 11:00 Physical Exam - Physical Exam General Appearance: alert, no apparent distress Neck: supple Respiratory: lungs clear, normal breath sounds Cardiac/Chest: regular rate, rhythm Abdomen: non-tender, soft Neuro/Psych: alert, normal mood/affect ICD10 Worksheet Patient Problems: Problems Problem Status Diagnosed CLL (chronic lymphocytic leukemia) Acute Hip fracture, left Acute Hypoxemia Acute
[2016-10-24 12:54] LABS: MACROCYTES 2+; PLATELET ESTIMATE DECREASED (ADEQ)
[2016-10-24 12:55] LABS: ACANTHOCYTES 1+
[2016-10-24 13:04] LABS: HOWELL-JOLLY BODIES 1+
[2016-10-24 13:07] LABS: HYPOCHROMIA 1+
[2016-10-24 13:13] LABS: ELLIPTOCYTES 1+
[2016-10-24 13:14] LABS: LARGE PLATELETS PRESENT
[2016-10-24] MEDS: QUEtiapine FUMARATE 100 MG TAB PO SCH (20:40)
[2016-10-24] MEDS: CHOLECALCIFEROL VIT D3 1,000 UNITS TAB PO SCH (20:40)
[2016-10-24] MEDS: TAMSULOSIN HCL 0.4 MG CAP PO SCH (20:40)
[2016-10-24] MEDS: ASPIRIN 81 MG CHEWABLE TAB PO SCH (20:41)
[2016-10-24] MEDS: LORazepam 1 MG TAB PO SCH (20:41)
[2016-10-24 22:31] LABS: SCAN POSITIVE
[2016-10-25] MEDS: ACETAMINOPHEN 500 MG TAB PO SCH (06:00)
[2016-10-25] MEDS: IPRATROPIUM/ALBUTEROL 3 ML DEYVIAL IH SCH ×2 (06:38→11:50)
[2016-10-25 06:48] VITALS: RESP 16; TEMP 98.6
[2016-10-25 08:32] LABS: ABSOLUTE NRBC COUNT 0.15 10^3/uL (0-0.01); ADD MORPH? YES; ADD SCAN? YES; ATYPICAL LYMPHOCYTE FLAG 60 (0-99); FRAGMENT RBC FLAG 20 (0-99); HEMATOCRIT 26.2 % (40.0-51.0); HEMOGLOBIN 7.1 g/dL (13.7-17.5); LEFT SHIFT FLG 20 (0-99); LIPEMIA HEMOLYSIS FLAG 70 (0-99); MEAN CELL HEMOGLOBIN 29.5 pg (27.9-34.1); MEAN CELL VOLUME 108.7 fL (81.5-99.8); MEAN PLATELET VOLUME 10.9 fL (8.7-11.7); NRBC-AUTO% 0.1 % (0.0-0.2); PLATELET CLUMPS FLAG 0 (0-99); PLATELET COUNT 113 10^3/uL (150-400); RED BLOOD CELL COUNT 2.41 10^6/uL (4.40-6.38)
[2016-10-25 08:39] LABS: MEAN CELL HEMOGLOBIN CONCENTR. 27.1 g/dL (32.4-36.7); RED CELL DISTRIBUTION WIDTH 20.2 % (11.5-15.2)
[2016-10-25] MEDS: POLYETHYLENE GLYCOL 3350 17 GM PKT PO SCH (10:03)
[2016-10-25] MEDS: amLODIPine BESYLATE 5 MG TAB PO SCH (10:08)
[2016-10-25] MEDS: FUROSEMIDE 20 MG TAB PO SCH (10:09)
[2016-10-25] MEDS: ARIPiprazole 10 MG TAB PO SCH (10:09)
[2016-10-25] MEDS: LISINOPRIL 20 MG TAB PO SCH (10:10)
[2016-10-25] MEDS: OXcarbazepine 300 MG TAB PO SCH (10:11)
[2016-10-25] MEDS: PROPRANOLOL SR 60 MG CAP PO SCH (10:13)
[2016-10-25] MEDS: valACYclovir 500 MG TAB PO SCH (10:13)
[2016-10-25 10:14] VITALS: BP 111/64; PULSE 75
[2016-10-25] MEDS: NYSTATIN 15 GM CR TUBE TP SCH (10:17)
[2016-10-25 10:44] VITALS: O2SAT 93
[2016-10-25 10:50] LABS: SCAN POSITIVE
[2016-10-25 11:02] LABS: ACANTHOCYTES 1+; ELLIPTOCYTES 1+; HYPOCHROMIA 1+; MACROCYTES 2+
[2016-10-25 11:03] LABS: LARGE PLATELETS PRESENT
[2016-10-25 11:05] LABS: PLATELET ESTIMATE DECREASED (ADEQ)
--- NOTE | 2016-10-25 15:30 | PDOREHIP ---
Admission [facility] - Admission - 3 Day Assessment Period Admission Date/Day 1: 10/04/16 Day 2: 10/05/16 Day 3: 10/06/16 - Active Diagnoses Comorbidities and Co-existing Conditions at Admission: 10530. None of the Above - Skin Conditions Unhealed Pressure Ulcer (1 or more/Stage 1 or >)-Admission: 0. No Discharge [facility] - Discharge - 3 Day Assessment Period 2 Days Prior to Anticipated Discharge Date: 10/23/16 1 Day Prior to Anticipated Discharge Date: 10/24/16 Anticipated Discharge Date: 10/25/16 - Discharge Skin Conditions Unhealed Pressure Ulcer (1 or more/Stage 1 or >)-Discharge: 0. No
--- NOTE | 2016-10-25 17:05 | GDS ---
[f rep st] DISCHARGE SUMMARY ADMISSION DIAGNOSES: Debility status post fall and left hip fracture for which he had open reduction, internal fixation. DISCHARGE DIAGNOSES: Debility status post fall and left hip fracture for which he had open reduction, internal fixation. OTHER DISCHARGE DIAGNOSES: 1. Dysphagia. 2. Cognitive impairment. 3. Congestive heart failure. 4. Chronic lymphocytic leukemia with leukocytosis and anemia. 5. Hypertension. 6. Hypogammaglobulinemia. CONSULTATIONS: None. PROCEDURES: He had a brain MRI on 10/11/2016. COMPLICATIONS: None. HISTORY AND HOSPITAL COURSE: Mr. Campos came to [facility] from [facility] after a fall at home with a left hip fracture. He was admitted to the hospital on 09/2016 and he underwent an ORIF on the same day. Hospital course was complicated by encephalopathy, hyponatremia, and hypovolemia, which resolved with fluid replacement. He had a blood transfusion for anemia. He was quite debilitated when he arrived. His initial functional independence measure (FIM) was 44 on 10/07/2016. This was consistent with a low-level of shelter care requiring assistance with all activities of daily living and mobility. He had considerable improvement in mobility and was able to walk as far as 60 feet by the day of his discharge. He was limited by fatigue. He advanced to a 1-person transfer from a 2-person transfer. His FIM score was 61 as of 10/20/2016 which is still consistent with shelter level of care, but with much reduced burden of care. He had dysphagia in the hospital. He had therapy with Speech Therapy and was eventually advanced to regular textured diet. Cognitive impairment with prominent memory loss and confabulation was noted. His alertness improved. His lorazepam 2 mg at h.s. was reduced to 1 mg.. In the hospital, a [facility] Mental Status Exam was done in which he scored 6 out of 30. Most likely his score had improved by the time of his discharge, but the exam was not repeated. His was very concerned about his cognitive status and reported that he had been evaluated for a stroke while in the acute care hospital. Per her request, an MRI was done on 10/11/2016 of his brain and it did not show cerebrovascular accident. It did show atrophy. He had a UTI during his stay. His urine culture grew Klebsiella, which was sensitive to levofloxacin and ciprofloxacin. He was treated with 7 days of ciprofloxacin and had no subsequent symptoms. It is possible that his improvement in his cognitive mental status through his stay was related to treating the infection. He had hypoxia. Chest x-ray was consistent with possible CHF. His BNP level was indeterminate. It was not low enough to rule out CHF and it was not definitively ruling in CHF. He was started on furosemide 20 mg daily which he tolerated well with no change in his renal function. His BNP improved considerably and his hypoxia resolved. He had anemia . Hemoglobin ranged through most of his stay between 7.7 and 8.9 ; however, on that day of discharge his hemoglobin was 7.1. He should have a repeat CBC within a week and consider a transfusion if his anemia is continuing to worsen. The results of the CBC should be forwarded to Dr. Escobar, his business process engineer/oncologist. His blood pressure was adequately controlled. When furosemide was initiated, his amlodipine 10 mg daily was discontinued, but his blood pressure increased. The amlodipine was resumed at 5 mg daily. Regarding hypogammaglobulinemia, which is related to his chronic lymphocytic leukemia, he received IVIG on 10/15/2016. It had been dosed q.3 weeks. The IVIG dosing was an impediment to transfer to a long term facility. On discussion with Heme/Onc physician, Dr. Escobar, she recommended that it was not an essential medication and would be unlikely to prevent life-threatening infections given that he had the chronic lymphocytic leukemia as well. Regarding chronic lymphocytic leukemia, there was discussion with oncologist, Dr. Escobar, who reported that Mr. Campos had been on an experimental trial with oral medication that had controlled his leukemia for approximately a year. She is interested in restarting it once he gets to the long term facility. Given Mr. Campos's fracture from a low-level fall and a history of prior fractures, it was advised that he consider bone density testing after his discharge. He was continued on vitamin D supplementation. An extensive conversation was had with his , Malgorzata, on 10/15/2016 regarding goals of care. She reported that he would not want his life prolonged with his current level of debility and cognitive impairment, so per her request his code status was changed to DNR. Likely end-of-life events were discussed, including the decision about antibiotics were he to have a life-threatening infection. His was advised to consult Hospice to plan for end-of-life care once he is done with subacute rehabilitation at the long term [facility]. PHYSICAL EXAM UPON DISCHARGE: VITALS: Blood pressure is 111/64, heart rate is 75, respiratory rate is 16, oxygen saturation is 93% on room air, temperature is 37 degrees centigrade. GENERAL: This is a well-nourished, well-developed overweight man, sitting in a wheelchair, cooperative, and in no acute distress. HEART: Regular rate and rhythm with no murmurs, rubs, or gallops. LUNGS: Clear to auscultation bilaterally. ABDOMEN: Soft, nontender, nondistended with normoactive bowel sounds. EXTREMITIES: There is no cyanosis , clubbing, or edema. NEUROLOGIC: He is alert. He is oriented to his plan to transfer to a long term facility today. He has no focal weakness. Sensation is intact to light touch. He was observed ambulating slowly with a front-wheeled walker with short steps and a narrow base of support. DISCHARGE PLAN: Condition upon discharge is good. Activity is ad vicki; however , he needs assistance or supervision for most mobility-related tasks and activities of daily living. Diet is regular. Date of next appointment: He is to be seen by his new attending at the [facility] within 1-2 weeks. He should follow up with his business process engineer/oncologist, Dr. Escobar, within 1-2 weeks. MEDICATIONS AT DISCHARGE: 1. Acetaminophen 1000 mg p.o. q.8 hours. 2. Albuterol/ipratropium 3 mL inhaled q.6 hours. 3. Alprazolam 0.5 mg p.o. b.i.d. p.r.n. he has not used any of this during his stay. 4. Amlodipine 5 mg p.o. daily. 5. Aripiprazole 40 mg p.o. daily. 6. Aspirin 81 mg p.o. q.h.s. 7. Bisacodyl 10 mg AL daily p.r.n. constipation. 8. Cholecalciferol 5000 units p.o. q.h.s. 9. Enoxaparin 40 mg subcutaneous daily to continue through 10/28/2016 for a 1- month course since his fall and hip fracture. 10. Furosemide 20 mg p.o. daily. 11. Lamivudine 100 mg p.o. daily. 12. Lisinopril 20 mg p.o. daily. 13. Lorazepam 1 mg p.o. q.h.s. 14. Oxcarbazepine 1200 mg p.o. daily and 600 mg p.o. q.h.s. 15. Oxycodone 5 mg p.o. q.3 hours p.r.n. pain. 16. Polyethylene glycol 17 g p.o. daily. 17. Quetiapine 200 mg p.o. q.h.s. 18. Senna 1-2 tablets p.o. b.i.d. p.r.n. 19. Tamsulosin 0.8 mg p.o. q.h.s. 20. Valacyclovir 500 mg p.o. daily. ISSUES TO BE ADDRESSED AT FOLLOWUP: 1. Functional mobility and activities of daily living. He will continue physical and occupational therapy at the long term [facility], and he can follow up with his new attending to be assigned there. 2. Cognitive impairment. He can continue therapy with Speech and Language Pathology at the [facility]. 3. Chronic lymphocytic leukemia. Follow up with Dr. Escobar and consider resumption of experimental trial medication. 4. Bipolar disorder has been stable. He should continue his current medications. 5. Hypertension has been adequately controlled on current medications. 6. Congestive heart failure with good response to furosemide. 7. History of hepatitis B with lamivudine for his chronic suppression. /[id number]/MODL MTDD
== END 2016-10-25 13:22 | DRG 560 ==
LOC: BREH 14:45
PROVIDERS: ADMIT Internal Medicine; ATTEND Internal Medicine
PROC: F08Z7ZZ Vocational Activities and Functional Community or Work Reintegration Skills Treatment (ICD-10-PCS; principal; 2016-10-04)
PROC: F07M3ZZ Motor Function Treatment of Musculoskeletal System - Whole Body (ICD-10-PCS; principal; 2016-10-04)
PROC: F0636ZZ Communicative/Cognitive Integration Skills Treatment of Neurological System - Whole Body (ICD-10-PCS; principal; 2016-10-04)
DX: Z47.89 Encounter for other orthopedic aftercare (principal); S72.002D Fracture of unspecified part of neck of left femur, subsequent encounter for closed fracture with routine healing; C91.90 Lymphoid leukemia, unspecified not having achieved remission; C85.90 Non-Hodgkin lymphoma, unspecified, unspecified site; B18.1 Chronic viral hepatitis B without delta-agent; D80.1 Nonfamilial hypogammaglobulinemia; N39.0 Urinary tract infection, site not specified; D63.0 Anemia in neoplastic disease; R53.81 Other malaise; I11.0 Hypertensive heart disease with heart failure; R13.10 Dysphagia, unspecified; F31.9 Bipolar disorder, unspecified; G20 Parkinson's disease; G47.33 Obstructive sleep apnea (adult) (pediatric); N40.0 Benign prostatic hyperplasia without lower urinary tract symptoms; R41.9 Unspecified symptoms and signs involving cognitive functions and awareness; I50.9 Heart failure, unspecified; Z66 Do not resuscitate
CPT/HCPCS: 92507-GN; 92522-GN; 92526; 92610; 97001-GP; 97003-GO; 97110-GO; 97110-GP; 97112-GP; 97116-GP; 97530-GO; 97530-GP; 97532-GO; 97535-GO; J1459; J1650

== ENCOUNTER 2016-11-16 06:15 | Observation (INO) | payer OTHER ==
[2016-11-16 10:50] LABS: % IMMATURE GRANULOCYTES 0.1 % (0.0-1.1); ABSOLUTE IMMATURE GRANULOCYTES 0.16 10^3/uL (0-0.10); ABSOLUTE NRBC COUNT 0.21 10^3/uL (0-0.01); HEMATOCRIT 24.3 % (40.0-51.0); HEMOGLOBIN 6.8 g/dL (13.7-17.5); MEAN CELL HEMOGLOBIN 30.1 pg (27.9-34.1); MEAN CELL VOLUME 107.5 fL (81.5-99.8); MEAN PLATELET VOLUME 11.5 fL (8.7-11.7); NRBC-AUTO% 0.1 % (0.0-0.2); PLATELET COUNT 61 10^3/uL (150-400); RED BLOOD CELL COUNT 2.26 10^6/uL (4.40-6.38); RED CELL DISTRIBUTION WIDTH 22.3 % (11.5-15.2)
[2016-11-16 11:14] LABS: ALANINE AMINOTRANSFERASE 16 IU/L (21-72); ALBUMIN 3.6 g/dL (3.5-5.0); ALKALINE PHOSPHATASE 93 IU/L (38-126); ANION GAP 6 mEq/L (8-16); ASPARTATE AMINOTRANSFERASE 18 IU/L (17-59); BILIRUBIN,TOTAL 0.3 mg/dL (0.1-1.4); CARBON DIOXIDE 28 mEq/l (22-31); CHLORIDE 110 mEq/L (97-110); CREATININE 1.3 mg/dL (0.7-1.3); GLOMERULAR FILTRATION RATE 55; GLUCOSE 128 mg/dL (70-100); POTASSIUM 3.7 mEq/L (3.5-5.2); SODIUM 144 mEq/L (134-144); TOTAL PROTEIN 6.4 g/dL (6.3-8.2)
[2016-11-17] MEDS ORDERED: ONDANSETRON 4 MG/2 ML VIAL IVP PRN (14:28)
[2016-11-17] MEDS ORDERED: ACETAMINOPHEN 325 MG TAB PO PRN (14:28)
[2016-11-17] MEDS ORDERED: ZOLPIDEM TARTRATE 5 MG TAB PO PRN (14:28)
[2016-11-17] MEDS ORDERED: LORazepam 0.5 MG TAB PO PRN (14:28)
[2016-11-17] MEDS ORDERED: ONDANSETRON DISINTEGRATING 4 MG TAB PO PRN (14:28)
[2016-11-17] MEDS ORDERED: LORazepam 2 MG/ML INJ IVP PRN (14:28)
[2016-11-17] MEDS ORDERED: oxyCODONE IR 5 MG TAB PO PRN (14:28)
[2016-11-17] MEDS ORDERED: HYDROmorphONE/DILAUDID 1 MG/ML SYR IVP PRN (14:28)
[2016-11-17] MEDS ORDERED: PROMETHAZINE HCL 25 MG/ML INJ IVP PRN (14:28)
--- NOTE | 2016-11-17 15:29 | PDGENHP ---
History and Physical - Chief Complaint anemia - History of Present Illness 71 yo M with hx of CLL currently in IP rehab s/p L hip ORIF sent over by oncology for anemia with need for transfusion. Patient states he is surprised that he needs a transfusion as he feels fine at the moment. He denies fatigue, sob, chest pain or dizzyness. He has been eating and drinking well. He has no urinary complaints. No fevers or chills. He states rehab has been going well and that he is getting around with a walker fairly well. He would like to go back home as soon as he is able, but he is not sure how much longer he will be in rehab. History Information - Allergies/Home Medication List Allergies/Adverse Reactions: No Allergies [NKA] Allergy (Verified 02/26/15 19:38) Home Medications: LAMIVUDINE [EPIVIR HBV] 100 mg PO DAILY 07/11/12 [Last Taken 10/04/16 10:00] Tamsulosin HCl [Flomax 0.4 MG (*)] 0.8 mg PO HS 02/27/15 [Last Taken 10/03/16 22 :00] ARIPiprazole [Abilify 10 mg (*)] 40 mg PO DAILY 09/27/16 [Last Taken 10/04/16 10 :00] Aspirin [Aspirin 81mg (*)] 81 mg PO HS 09/27/16 [Last Taken 10/03/16 22:00] Cholecalciferol Vit D3 [Vitamin D3 (*)] 5,000 units PO HS 09/27/16 [Last Taken 10/03/16] Lisinopril [Zestril 20 mg (*)] 20 mg PO DAILY 09/27/16 [Last Taken 10/04/16] OXcarbazepine [Trileptal 300mg (*)] 1,200 mg PO DAILY 09/27/16 [Last Taken 10/04] OXcarbazepine [Trileptal 300mg (*)] 600 mg PO HS 09/27/16 [Last Taken 10/03/16] Propranolol Sr [Inderal LA 60mg (*)] 60 mg PO DAILY 09/27/16 [Last Taken 10:00] QUEtiapine FUMARATE [Seroquel 200 mg (*)] 200 mg PO HS 09/27/16 [Last Taken ] valACYclovir [Valtrex (*)] 500 mg PO DAILY 09/27/16 [Last Taken 10/04/16] I have personally reviewed and updated: family history, medical history, social history, surgical history - Past Medical History cancer (CLL, NHL), hypertension, psychiatric history (bipolar d/o) Additional medical history: chronic anemia. chronic hep b. chele--intolerant of cpap. hypogammaglobulinemia. chronic interstitial pneumonitis - Surgical History Reports: appendectomy Additional surgical history: splenectomy. left hip ORIF. colon resection - Family History Positive for: non-pertinent - Social History Smoking Status: Former smoker Alcohol Use: Occasionally Drug Use: None Additional social history: currently at rehab, , ambulating with walker Review of Systems ROS: 10pt was reviewed & negative except for what was stated in HPI & below Physical Exam Temp Pulse Resp BP Pulse Ox 36.6 C 69 18 140/71 H 95 11/17/16 14:30 11/17/16 14:30 11/17/16 14:30 11/17/16 14:30 11/17/16 14:30 Constitutional: no apparent distress, chronically ill appearing Eyes: PERRL, anicteric sclera Ears, Nose, Mouth, Throat: moist mucous membranes, hearing normal Cardiovascular: regular rate and rhythym, no murmur, rub, or gallop, No edema Respiratory: no respiratory distress, no rales or rhonchi, clear to auscultation Gastrointestinal: normoactive bowel sounds, soft, non-tender abdomen Genitourinary: no bladder tenderness Skin: warm, No normal color (pale) Musculoskeletal: full muscle strength, No asymmetric calves, No muscular tenderness Neurologic: AAOx3, sensation intact bilaterally Psychiatric: interacting appropriately, not anxious, not encephalopathic Lab Data & Imaging Review 11/16/16 10:28 11/16/16 10:28 WBC 248.41 10^3/uL (3.80-9.50) H* 11/16/16 10:28 RBC 2.26 10^6/uL (4.40-6.38) L 11/16/16 10:28 Hgb 6.8 g/dL (13.7-17.5) L 11/16/16 10:28 Hct 24.3 % (40.0-51.0) L 11/16/16 10:28 MCV 107.5 fL (81.5-99.8) H 11/16/16 10:28 MCH 30.1 pg (27.9-34.1) 11/16/16 10:28 MCHC 28.0 g/dL (32.4-36.7) L 11/16/16 10:28 RDW 22.3 % (11.5-15.2) H 11/16/16 10:28 Plt Count 61 10^3/uL (150-400) L 11/16/16 10:28 MPV 11.5 fL (8.7-11.7) 11/16/16 10:28 Neut % (Auto) 1.1 % (39.3-74.2) L 11/16/16 10:28 Lymph % (Auto) 94.0 % (15.0-45.0) H 11/16/16 10:28 Newberry % (Auto) 4.6 % (4.5-13.0) 11/16/16 10:28 Eos % (Auto) 0.1 % (0.6-7.6) L 11/16/16 10:28 Baso % (Auto) 0.1 % (0.3-1.7) L 11/16/16 10:28 Nucleat RBC Rel Count 0.1 % (0.0-0.2) 11/16/16 10:28 Absolute Neuts (auto) 3.17 10^3/uL (1.70-6.50) 11/16/16 10:28 Absolute Lymphs (auto) 233.40 10^3/uL (1.00-3.00) H 11/16/16 10:28 Absolute Monos (auto) 11.31 10^3/uL (0.30-0.80) H 11/16/16 10:28 Absolute Eos (auto) 0.14 10^3/uL (0.03-0.40) 11/16/16 10:28 Absolute Basos (auto) 0.23 10^3/uL (0.02-0.10) H 11/16/16 10:28 Absolute Nucleated RBC 0.21 10^3/uL (0-0.01) H 11/16/16 10:28 Immature Gran % 0.1 % (0.0-1.1) 11/16/16 10:28 Immature Gran # 0.16 10^3/uL (0-0.10) H 11/16/16 10:28 Sodium 144 mEq/L (134-144) 11/16/16 10:28 Potassium 3.7 mEq/L (3.5-5.2) 11/16/16 10:28 Chloride 110 mEq/L (97-110) 11/16/16 10:28 Carbon Dioxide 28 mEq/l (22-31) 11/16/16 10:28 Anion Gap 6 mEq/L (8-16) 11/16/16 10:28 BUN 17 mg/dL (7-23) 11/16/16 10:28 Creatinine 1.3 mg/dL (0.7-1.3) 11/16/16 10:28 Estimated GFR 55 11/16/16 10:28 Glucose 128 mg/dL (70-100) H 11/16/16 10:28 Calcium 10.0 mg/dL (8.5-10.4) 11/16/16 10:28 Total Bilirubin 0.3 mg/dL (0.1-1.4) 11/16/16 10:28 AST 18 IU/L (17-59) 11/16/16 10:28 ALT 16 IU/L (21-72) L 11/16/16 10:28 Alkaline Phosphatase 93 IU/L (38-126) 11/16/16 10:28 Total Protein 6.4 g/dL (6.3-8.2) 11/16/16 10:28 Albumin 3.6 g/dL (3.5-5.0) 11/16/16 10:28 Assessment & Plan Assessment: 71 yo M with PMH of CLL admitted with acute on chronic anemia # acute on chronic anemia: with hx of CLL and chronic anemia, slightly lower than baseline at hgb 6.8 and hct of 24. Not symptomatic however. Will transfuse 2 units today. Would like to keep his hgb around 8 per his oncologist # hyperleukocytosis: 2/2 CLL, counts are higher in the last month, and apparently he has been unable to continue on his trial medications since being in rehab # CLL: as above, primary oncologist Shawn, they will follow while in house # hypogammaglobulinemia: IVIG tx intermittently, may be due for this now, onc following # s/p L hip ORIF: currently in rehab, ambulating with walker, continue pt/ot # chronic medical issues: htn, chronic interstitial pneumonitis, chele--continue op mgmt # observation status, suspect he will need < 48 hours stay for eval/mgt of above Patient new to my care. Old records reviewed and summarized as above. Care plan reviewed with oncology.
[2016-11-17] MEDS ORDERED: diphenhydrAMINE 25 MG CAP PO ONE (17:30)
[2016-11-17] MEDS ORDERED: ALPRAZolam 0.5 MG TAB PO PRN (22:57)
[2016-11-17] MEDS ORDERED: SENNOSIDES 1 TAB PO PRN (22:57)
[2016-11-17] MEDS ORDERED: QUEtiapine FUMARATE 200 MG TAB PO SCH (22:58)
[2016-11-17] MEDS ORDERED: OXcarbazepine 300 MG TAB PO SCH (23:00)
[2016-11-17] MEDS ORDERED: ALPRAZolam 0.25 MG TAB PO PRN (23:11)
[2016-11-17] MEDS: LISINOPRIL 20 MG TAB PO SCH (23:48)
[2016-11-18] MEDS: IPRATROPIUM/ALBUTEROL 3 ML DEYVIAL IH SCH ×3 (01:54→10:22)
[2016-11-18 04:55] LABS: ADD MORPH? YES; ATYPICAL LYMPHOCYTE FLAG 40 (0-99); FRAGMENT RBC FLAG 20 (0-99); HEMATOCRIT 28.2 % (40.0-51.0); HEMOGLOBIN 8.4 g/dL (13.7-17.5); LEFT SHIFT FLG 10 (0-99); LIPEMIA HEMOLYSIS FLAG 70 (0-99); MEAN CELL HEMOGLOBIN 31.7 pg (27.9-34.1); MEAN CELL HEMOGLOBIN CONCENTR. 29.8 g/dL (32.4-36.7); MEAN CELL VOLUME 106.4 fL (81.5-99.8); MEAN PLATELET VOLUME 11.2 fL (8.7-11.7); NRBC-AUTO% 0.1 % (0.0-0.2); PLATELET CLUMPS FLAG 20 (0-99); PLATELET COUNT 56 10^3/uL (150-400); RED BLOOD CELL COUNT 2.65 10^6/uL (4.40-6.38)
[2016-11-18 05:00] LABS: RED CELL DISTRIBUTION WIDTH 21.2 % (11.5-15.2)
[2016-11-18 05:01] LABS: ADD DIFF? YES
[2016-11-18 05:02] LABS: ADD SCAN? YES
[2016-11-18 05:18] LABS: ANION GAP 8 mEq/L (8-16); CALCIUM 9.7 mg/dL (8.5-10.4); CARBON DIOXIDE 26 mEq/l (22-31); CHLORIDE 109 mEq/L (97-110); CREATININE 1.2 mg/dL (0.7-1.3); GLOMERULAR FILTRATION RATE > 60; GLUCOSE 88 mg/dL (70-100); POTASSIUM 3.4 mEq/L (3.5-5.2); SODIUM 143 mEq/L (134-144)
[2016-11-18 06:35] LABS: ACANTHOCYTES 1+; MACROCYTES 2+; MICROCYTES 1+; PLATELET ESTIMATE DECREASED (ADEQ)
[2016-11-18 06:38] LABS: SMUDGE CELLS 2+
[2016-11-18 08:18] VITALS: TEMP 98.4
[2016-11-18 08:40] LABS: SCAN POSITIVE
[2016-11-18] MEDS ORDERED: amLODIPine BESYLATE 5 MG TAB PO SCH (09:00)
[2016-11-18] MEDS ORDERED: PROPRANOLOL SR 60 MG CAP PO SCH (09:00)
[2016-11-18] MEDS ORDERED: TAMSULOSIN HCL 0.4 MG CAP PO SCH (09:00)
[2016-11-18] MEDS ORDERED: ARIPIPRAZOLE PO SCH (09:00)
[2016-11-18] MEDS ORDERED: ARIPiprazole 10 MG TAB PO SCH (09:00)
[2016-11-18] MEDS ORDERED: ACETAMINOPHEN 500 MG TAB PO SCH (09:00)
[2016-11-18] MEDS ORDERED: FUROSEMIDE 20 MG TAB PO SCH (09:00)
[2016-11-18] MEDS ORDERED: valACYclovir 500 MG TAB PO SCH (09:00)
[2016-11-18] MEDS ORDERED: OXcarbazepine 300 MG TAB PO SCH (09:00)
[2016-11-18] MEDS ORDERED: POLYETHYLENE GLYCOL 3350 17 GM PKT PO SCH (09:00)
[2016-11-18] MEDS: LISINOPRIL 20 MG TAB PO SCH (09:11)
[2016-11-18 10:24] VITALS: RESP 18
[2016-11-18 10:28] VITALS: BP 158/90; PULSE 71; O2SAT 90
--- NOTE | 2016-11-18 12:45 | PDIAF ---
- Diagnosis Diagnosis: Anemia Code Status: Do Not Resuscitate - Medication Management Discharge Medications: Medications to Continue on Transfer LAMIVUDINE [EPIVIR HBV] 100 mg PO DAILY 07/11/12 [Last Taken 10/04/16 10:00] Tamsulosin HCl [Flomax 0.4 MG (*)] 0.8 mg PO DAILY 02/27/15 [Last Taken 22:00] Aspirin [Aspirin 81mg (*)] 81 mg PO HS 09/27/16 [Last Taken 10/03/16 22:00] Cholecalciferol Vit D3 [Vitamin D3 (*)] 5,000 units PO HS 09/27/16 [Last Taken 10/03/16] Lisinopril [Zestril 20 mg (*)] 20 mg PO BID 09/27/16 [Last Taken 10/04/16] OXcarbazepine [Trileptal 300mg (*)] 1,200 mg PO DAILY 09/27/16 [Last Taken 10/04] OXcarbazepine [Trileptal 300mg (*)] 600 mg PO HS 09/27/16 [Last Taken 10/03/16] Propranolol Sr [Inderal LA 60mg (*)] 60 mg PO DAILY 09/27/16 [Last Taken 10:00] QUEtiapine FUMARATE [Seroquel 200 mg (*)] 200 mg PO HS 09/27/16 [Last Taken ] valACYclovir [Valtrex (*)] 500 mg PO DAILY 09/27/16 [Last Taken 10/04/16] Acetaminophen [Tylenol ES 500 mg (*)] 1,000 mg PO TID #0 tab 10/04/16 [Last Taken 10/04/16 10:00] Ipratropium/Albuterol [Duoneb (*)] 3 ml IH Q6HRS #0 deyvial 10/04/16 [Last Taken 10/04/16 11:00] Furosemide [Lasix 20 MG (*)] 20 mg PO DAILY #0 tab 10/21/16 [Last Taken Unknown] Polyethylene Glycol 3350 [Miralax 17 gm (*)] 17 gm PO DAILY #0 pkt 10/21/16 [ Last Taken Unknown] amLODIPine BESYLATE [Norvasc 5 mg (*)] 5 mg PO DAILY #0 tab 10/21/16 [Last Taken Unknown] ALPRAZolam [Xanax 0.5 MG (*)] 0.5 mg PO BID PRN #30 tab 10/25/16 [Last Taken Unknown] Aripiprazole 40 mg PO DAILY 11/17/16 [Last Taken Unknown] LORazepam [Ativan (*)] 1 mg PO HS 11/17/16 [Last Taken Unknown] Sennosides [Senokot] 2 tab PO DAILY PRN 11/17/16 [Last Taken Unknown] Discharge Medications: Refer to the Discharge Home Medication list for PRN reason. - Orders Services needed: Physical Therapy, Occupational Therapy Diet Recommendation: no restrictions on diet Diet Texture: Regular Texture Diet - Follow Up Care Current Providers and Referrals: Jeramie Fung MD [Primary Care Provider] -
--- NOTE | 2016-11-18 14:48 | GCON ---
[f rep st] CONSULTATION HEMATOLOGY/ONCOLOGY VISIT DATE OF CONSULTATION: 11/18/2016 HISTORY OF PRESENT ILLNESS: The patient is a 71-year-old gentleman who is currently residing in [facility] here in [place]. He is followed by my partner, Dr. Blaire Escobar. Briefly, the patient was diagnosed with chronic lymphocytic leukemia in October of 2006. He has rece ived multiple therapies in the past, including fludarabine-based therapy and single-agent rituximab. Since July 2015, he has been on a clinical trial with [id number] (Syk inhibitor). In the outpatient setting, he was noted to have more anemia with a hemoglobin of 6.8. The patient do es have chronic anemia with a baseline hemoglobin in the mid 8 range. He has chronic leukocytosis re lated to his CLL. More recently, the patient has had issues with dementia. He does have Parkinson disease. The patient was admitted for blood transfusion. PAST MEDICAL HISTORY: 1. Chronic lymphocytic leukemia, as outlined above. 2. Chronic hepatitis B (patient on lamivudine). 3. History of elevated PSA (watchful waiting being pursued). 4. Osteopenia. 5. 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 6. Interstitial pulmonary fibrosis. 7. Parkinson disease. 8. 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 REVIEW OF SYSTEMS: The patient denies any abdominal pain. He denies weight loss, night sweats at th e current time. He does report fatigue, but states he feels somewhat better today after receiving bl ood. PHYSICAL EXAMINATION: GENERAL: Pleasant, elderly gentleman, who is resting comfortably in bed. He answers questions appropriately. HEENT: Pupils are equal. Sclerae nonicteric. No palpable submand ibular, cervical, or supraclavicular adenopathy. ABDOMEN: Soft, nontender, nondistended. EXTREMITI ES: No extremity swelling or edema. LABORATORY STUDIES: Upon admission, white count 248,000, hemoglobin 6.8, platelet count 61,000. CBC from today: White count 237,000, hemoglobin 8.4, platelet count 56,000. Absolute neutrophil count is 4760. Sodium 143, potassium 3.4, chloride 109, bicarb 26, BUN 16, creatinine 1.2. IMPRESSION: 1. Chronic lymphocytic leukemia. 2. Anemia secondary to #1. 3. Parkinson disease with mild dementia. The patient is a pleasant 71-year-old gentleman who was admitted for a blood transfusion for symptoma tic anemia. He tolerated the transfusion well. He has had a good response. He will be discharged t o his previous rehab facility later today. I discussed his case with Dr. Cuevas of the hospital[facility]. Dr. Escobar is aware of his admission, and I will let her know of his discharge today, so that she can arrange outpatient followup. Total time for today's visit was approximately 25 minutes. /[id number]/MODL
--- NOTE | 2016-11-18 15:02 | GDS ---
[f rep st] DISCHARGE SUMMARY DISCHARGE DIAGNOSES: 1. Acute on chronic anemia. 2. History of chronic lymphocytic leukemia. 3. Leukocytosis. 4. Hypogammaglobinemia. 5. Status post left hip open reduction, internal fixation. HOSPITAL COURSE AND STAY BY PROBLEM: Acute on chronic anemia: The patient was transferred to [facility] from [facility] after he was noted to have a hemoglobin of 6.8. The patient was transfused 2 units of packed red blood cells, which brought his hemoglobin up to 8.4. On day of discharge, the patient appears to be at his baseline and will plan to transfer back to rehab for fur ther care. PHYSICAL EXAM ON DAY OF DISCHARGE: VITAL SIGNS: Blood pressure 158/90, pulse 71, respiratory rate 1 8, O2 sat 90% on room air. GENERAL: No acute distress. HEART: S1, S2. LUNGS: Clear. ABDOMEN: Soft. EXTREMITIES: No edema. PROCEDURES DONE THIS HOSPITAL STAY: Two units packed red blood cells were transfused on 11/17/2016. DISCHARGE MEDICATIONS: Please refer to discharge medication reconciliation in [facility] for details. DISCHARGE INSTRUCTIONS: The patient will be discharged back to [facility] for further care, wh ere he should follow up with his oncologist as directed. /[id number]/MODL
[2016-11-18] MEDS ORDERED: CHOLECALCIFEROL VIT D3 1,000 UNITS TAB PO SCH (21:00)
[2016-11-18] MEDS ORDERED: LORazepam 1 MG TAB PO SCH (21:00)
[2016-11-18] MEDS ORDERED: ASPIRIN 81 MG CHEWABLE TAB PO SCH (21:00)
== END 2016-11-18 15:15 ==
LOC: RMCCLAB 06:15 → EDSTATUS 11-17 10:53 → F1N 11-17 13:56
PROVIDERS: ADMIT Internal Medicine; ATTEND Family Medicine
PROC: 30233N1 Transfusion of Nonautologous Red Blood Cells into Peripheral Vein, Percutaneous Approach (ICD-10-PCS; principal; 2016-11-17)
DX: C91.00 Acute lymphoblastic leukemia not having achieved remission (principal); D63.0 Anemia in neoplastic disease; G31.83 Neurocognitive disorder with Lewy bodies; F02.80 Dementia in other diseases classified elsewhere, unspecified severity, without behavioral disturbance, psychotic disturbance, mood disturbance, and anxiety; Z86.73 Personal history of transient ischemic attack (TIA), and cerebral infarction without residual deficits; M85.80 Other specified disorders of bone density and structure, unspecified site
CPT/HCPCS: 36430; G0378; P9040